=== PATIENT | female | born 1925 | race Caucasian/White ===

== ENCOUNTER 2016-08-25 02:20 | Inpatient (IN) | payer MEDICARE, BC ==
[2016-08-25] MEDS ORDERED: Acetaminophen TAB* 325 MG PO ONE (03:00)
[2016-08-25] MEDS ORDERED: Morphine INJ* 2 MG/ML 1 ML SYRINGE ONE (04:56)
[2016-08-25] MEDS ORDERED: Ondansetron INJ* 2 MG/ML VIAL ONE (04:56)
[2016-08-25] MEDS ORDERED: Ondansetron INJ* 2 MG/ML VIAL IV ONE (05:09)
[2016-08-25] MEDS ORDERED: Morphine INJ* 2 MG/ML 1 ML SYRINGE IV ONE (05:09)
--- NOTE | 2016-08-25 05:11 | HP ---
H&P (Free Text) History and Physical: PCP: Razia Chan MD Date/Time of Evaluation: 08/25/509 CC: fall w/ R hip pain HPI: Mrs Mccollum is an 89YO remarkably healthy female who got up to go to the restroom this night, lost her balance, and fell landing on her R side with immediate pain in the R hip. She called out to her daughter, Ally with whom she lives, who called EMS. She denies prodromal symptoms, specifically no chest pain, SOB, palpitations, light-headedness, dizziness, or other issue. She recalls falling and landing. There was no LOC. Work up reveals an angulated R femoral neck FX, but no other acute radiologic finding. Vitals are stable. Labs are remarkable for WBCs of 15k 83% neutrophils, otherwise reasonably normal. Of note, she has had bronchitis for ~1week which progressed to fever of 102F and for which her PCP started her on a Z-kaylen yesterday (Saturday). Her influenza & pneumococcal vaccines are reportedly up to date. Given this and her leukocytosis, surgery should be held while blood & urine CXs are processing and while her azithromycin is continued. Once she is afebrile for 48H on ABX, surgical management of her fracture may be considered. A rapid influenza is pending. PMedHx sinus tachycardia hiatal hernia GERD diverticulitis Allergies Aspirin Allergy (Verified 02/16/16 15:49) Hives/Diff.Breathing/Itching Niacin Allergy (Verified 02/16/16 15:49) See Comment liver issues Ambulatory Orders Docusate CAP* [Colace Cap*] 100 mg PO DAILY PRN 12/06/15 Ipratropium [place] (Nasal) [Ipratropium Volcano] 2 spray BOTH NARES TID LoraTADine TAB(NF) [Claritin TAB(NF)] 10 mg PO DAILY #0 12/06/15 Metoprolol Tartrate TAB* [Lopressor TAB*] 25 mg PO 1200,2000 tab 12/07/15 Misc Natural Products [Osteo Bi-Flex Advanced Do] 1 tab PO DAILY 02/16/16 Pantoprazole TAB (NF) [Protonix TAB (NF)] 20 mg PO DAILY #14 tab 02/16/16 Azithromycin TAB* [Zithromax TAB (Z-KAYLEN) 250 mg #6 tabs] 250 mg PO DAILY Calcium Carbonate-Vitamin D [Calcium 500 + D] 1 tab PO BID 08/25/16 Cranberry (Vaccinium Macrocarp [Cranberry] 400 mg PO DAILY 08/25/16 traMADol TAB* [Ultram*] 50 mg PO Q6HR PRN 08/25/16 PSurgHx OU cataract extraction nasal polyp extraction cholecystectomy SocHx: no tobacco, alcohol, or recreational drugs; 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; retired nurse; full code status FamHx: Father: "bad heart"; Brother: cancer of intestines ROS: as above, otherwise reviewed and all were negative Constitutional: NAD, normally developed, thin elderly white female vitals: Vital Signs Temp 37.0 C 08/25/16 02:37 Pulse 87 08/25/16 02:37 Resp 12 08/25/16 05:10 BP 126/43 08/25/16 02:37 Pulse Ox 93 08/25/16 02:37 Intake & Output 08/24/16 08/24/16 08/25/16 11:59 23:59 11:59 Weight 52.163 kg HEENM: atraumatic; sclera/conjunctiva: non-icteric/clear; hearing: clinically intact; oropharynx: clear, mucosa tacky Neck: soft tissue: non-tender; thyroid: normal Pulmonary: scant coarse crackle L base clears with deep inspiration otherwise clear, good aeration, no accessory muscle use CV: RR/RR, normal S1S2, no carotid bruit, no jugular venous distention, 1+ B DP/ PT, no edema, capillary refill RLE ~2sec Abdominal: soft, non-distended, non-tender, no rebound/guarding/rigidity, normoactive bowel sounds, no hepatosplenomegaly or masses, no costovertebral angle tenderness Musculoskeletal: general: RLE pain & spasm; gait: non-ambulatory 2nd R hip FX Integumental: R foot warm & pink Psychiatric orientation: AA&O to PPTS, sharp affect: alert, inquisitive mood: pleasant eye contact: good content: reliable memory: intact responses: timely insight: good Testing: Lab Results 08/25/16 08/25/16 Range/Units 05:12 05:12 WBC 15.6 H (3.5-10.8) 10^3/ul RBC 3.89 L (4.0-5.4) 10^6/ul Hgb 12.5 (12.0-16.0) g/dl Hct 36 (35-47) % MCV 94 (80-97) fL MCH 32 H (27-31) pg MCHC 34 (31-36) g/dl RDW 13 (10.5-15) % Plt Count 167 (150-450) 10^3/ul MPV 8 (7.4-10.4) um3 Neut % (Auto) 83.6 H (38-83) % Lymph % (Auto) 10.0 L (25-47) % [place] % (Auto) 6.0 (1-9) % Eos % (Auto) 0.1 (0-6) % Baso % (Auto) 0.3 (0-2) % Absolute Neuts (auto) 13.0 H (1.5-7.7) 10^3/ul Absolute Lymphs (auto) 1.5 (1.0-4.8) 10^3/ul Absolute Monos (auto) 0.9 H (0-0.8) 10^3/ul Absolute Eos (auto) 0 (0-0.6) 10^3/ul Absolute Basos (auto) 0 (0-0.2) 10^3/ul Absolute Nucleated RBC 0.01 10^3/ul Nucleated RBC % 0 Sodium 130 L (133-145) mmol/L Potassium 3.7 (3.5-5.0) mmol/L Chloride 97 L (101-111) mmol/L Carbon Dioxide 26 (22-32) mmol/L Anion Gap 7 (2-11) mmol/L BUN 17 (6-24) mg/dL Creatinine 0.71 (0.51-0.95) mg/dL Est GFR ( Amer) 99.7 (>60) Est GFR (Non-Af Amer) 77.5 (>60) BUN/Creatinine Ratio 23.9 H (8-20) Glucose 111 H (70-100) mg/dL Calcium 8.9 (8.6-10.3) mg/dL Total Bilirubin 0.60 (0.2-1.0) mg/dL AST 16 (13-39) U/L ALT 10 (7-52) U/L Alkaline Phosphatase 55 (34-104) U/L Total Protein 5.6 L (6.4-8.9) g/dL Albumin 3.2 (3.2-5.2) g/dL Globulin 2.4 (2-4) g/dL Albumin/Globulin Ratio 1.3 (1-3) ECG: ordered, pending CXR, personally reviewed: rotated L shoulder forward w/o infiltrate XRY R shoulder, personally reviewed: no obvious FX XRY R hip/pelvis, personally reviewed: angulated R femoral neck FX CT brain WO, personally reviewed: no obvious mass, hemorrhage, or infarct Impression: 89F presenting with a R hip FX s/p mechanical fall w/ concurrent bronchitis & recent fever DIAGNOSIS & PLAN Primary R hip FX s/p mechanical fall : pain control : Reggie Spence MD orthopedic surgery consulted, will follow : obtain CT RLE to define anatomy of FX : supportive care febrile bronchitis : continue PO azithromycin x4 days : check rapid influenza : check blood & urine CXs : recommend holding surgical management until afebrile and & blood CX negative for 48h Secondary sinus tachycardia : continue metoprolol GERD : continue pantoprazole Admission Rational: inpatient for surgical management of R hip FX and treatment/ monitoring of her febrile bronchitis as above DVTp: heparin SQ Code Status: full HCP: daughterAlly
[2016-08-25 05:25] LABS: Hematocrit 36 % (35-47); Hemoglobin 12.5 g/dl (12.0-16.0); Mean Corpuscular HGB Conc 34 g/dl (31-36); Mean Corpuscular Hemoglobin 32 pg (27-31); Mean Corpuscular Volume 94 fL (80-97); Mean Platelet Volume 8 um3 (7.4-10.4); Red Blood Count 3.89 10^6/ul (4.0-5.4); Red Cell Distribution Width 13 % (10.5-15); White Blood Count 15.6 10^3/ul (3.5-10.8)
[2016-08-25 05:40] LABS: Albumin 3.2 g/dL (3.2-5.2); BUN/Creatinine Ratio 23.9 (8-20); Calcium 8.9 mg/dL (8.6-10.3); EGFR African American 99.7 (>60); EGFR Non-African American 77.5 (>60); Globulin 2.4 g/dL (2-4); Potassium 3.7 mmol/L (3.5-5.0); Total Bilirubin 0.6 mg/dL (0.2-1.0); Total Protein 5.6 g/dL (6.4-8.9)
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
[2016-08-25] MEDS: Morphine INJ* 2 MG/ML 1 ML SYRINGE IV PRN ×3 (06:07→17:18)
[2016-08-25] MEDS ORDERED: Ondansetron INJ* 2 MG/ML VIAL IV PRN (06:12)
[2016-08-25] MEDS ORDERED: Melatonin (NF) 3 MG TAB PO PRN (06:12)
[2016-08-25] MEDS ORDERED: Acetaminophen TAB* 325 MG PO PRN (06:12)
[2016-08-25] MEDS: NS 0.9% 1000 ML* 1,000 ML IV SCH (08:01)
--- NOTE | 2016-08-25 10:11 | RAD ---
INDICATION: Right hip pain after a fall COMPARISON: None TECHNIQUE: 3 views of the right hip were obtained. FINDINGS: There is a comminuted fracture through the intertrochanteric line of the right hip with a small degree of varus deformity. Remaining visualized bones of the hip and pelvis are intact. Degenerative changes are noted at the bilateral hips. IMPRESSION: Minimally displaced right intertrochanteric fracture causing mild varus deformity.
--- NOTE | 2016-08-25 10:11 | RAD ---
INDICATION: Left shoulder pain after a fall COMPARISON: None. TECHNIQUE: 3 views of the left shoulder were obtained. FINDINGS: The adequately corticated bones are in normal alignment. Joint spaces appear maintained. No fracture, dislocation or focal bony abnormality is seen. IMPRESSION: Normal radiograph of the left shoulder. If the patient's symptoms persist, follow-up imaging is recommended.
--- NOTE | 2016-08-25 10:21 | RAD ---
INDICATION: Right hip fracture after a fall. COMPARISON: Chest x-ray dated February 16, 2016 TECHNIQUE: Single AP view of the chest was obtained. FINDINGS: Chronic findings include mild cardiomegaly, coarse calcification at the arch of the aorta and ectatic change of the thoracic aorta. The lungs are hyperaerated similar to the previous chest x-ray. There is diffuse reticulonodular densities. There is more confluent density along the medial aspect of the left lower lung that extends down to the diaphragm. IMPRESSION: 1. CHRONIC APPEARING FINDINGS INCLUDE CARDIOMEGALY AND DIFFUSE RETICULONODULAR DENSITIES WHICH COULD BE DUE TO CHRONIC CONGESTIVE HEART FAILURE OR INTERSTITIAL LUNG DISEASE. 2. A MORE CONFLUENT DENSITY AT THE MEDIAL ASPECT OF THE LEFT LOWER LOBE, NOT DEFINITELY SEEN ON THE PREVIOUS CHEST X-RAY, COULD REPRESENT CONSOLIDATION AND/OR ATELECTASIS.
[2016-08-25] MEDS: Cetirizine* 10 MG TAB PO SCH (10:28)
[2016-08-25] MEDS: Docusate CAP* 100 MG PO SCH ×2 (10:29→20:25)
[2016-08-25] MEDS: CMCS: Pantoprazole TAB (NF) 40 MG TAB PO SCH (10:29)
[2016-08-25] MEDS: Azithromycin TAB* 250 MG PO SCH (10:29)
[2016-08-25] MEDS: IPRATROPIUM BROMIDE BOTH NARES SCH ×3 (10:32→21:37)
--- NOTE | 2016-08-25 10:43 | RAD ---
CLINICAL HISTORY: Right hip pain after a fall COMPARISON: Same day radiograph that shows a minimally displaced right intertrochanteric fracture. TECHNIQUE: Multiple contiguous axial CT scans were obtained of the abdomen and pelvis, without intravenous contrast enhancement. Coronal and sagittal multiplanar reformations are submitted for review. FINDINGS: The visualized portions of the solid abdominal organs are grossly normal in appearance. The visualized loops of small and large bowel are not pathologically dilated. Rectosigmoid diverticula are incidentally noted. There is a Romero catheter in the urinary bladder. There is a pessary device in the pelvis. There is no gross retroperitoneal or mesenteric lymphadenopathy in the visualized portions of the abdomen. There is a comminuted intertrochanteric fracture including minimal displacement fracture line through the lesser and greater trochanter. Degenerative changes of the bilateral hips include joint space narrowing, sclerotic change of the articulating surfaces, subchondral lucencies and marginal osteophyte formation. Degenerative changes of the visualized lower lumbar spine include vacuum disc phenomenon and obliteration of the intervertebral disc space at L5/S1. IMPRESSION: 1. Comminuted right intertrochanteric fracture. 2. Chronic, degenerative and iatrogenic findings as described in the body of the report.
[2016-08-25 11:03] LABS: Urine Bacteria Absent (Absent); Urine Bilirubin Negative (Negative); Urine Glucose Negative (Negative); Urine Nitrite Negative (Negative)
[2016-08-25] MEDS: Metoprolol Tartrate TAB* 25 MG PO SCH ×2 (12:10→20:25)
--- NOTE | 2016-08-25 12:54 | RAD ---
INDICATION: Head pain after a fall COMPARISON: None. TECHNIQUE: Contiguous axial sections of the brain were obtained from the skull base to the vertex without contrast. FINDINGS: The ventricles, cisterns and sulci symmetrical age-appropriate involutional changes of the ventricles, sulci and cisterns. There is mild periventricular and subcortical white matter hypoattenuation, including a more focal area of hypoattenuation measuring 6 mm at the right subinsular cortex. Otherwise the stanford-white matter differentiation is adequately maintained and there is no sulcal effacement. No significant focal abnormality or mass effect is present. There is no evidence for intracranial hemorrhage. Calcified atherosclerosis is seen at the bilateral petrous carotid arteries and vertebral arteries. No significant focal osseous abnormality is present. There is mucosal thickening of the right greater than left maxillary sinuses, the sphenoid sinuses and the ethmoid air cells. The patient appears to be status post prior sinus surgery. IMPRESSION: Chronic appearing and postoperative changes as described above without acute traumatic injury identified.
[2016-08-25] MEDS: guaiFENesin LIQ* 100 MG/5 ML UDC PO PRN ×2 (14:30→20:26)
[2016-08-25] MEDS: Cyclobenzaprine TAB* 10 MG PO PRN ×2 (14:31→23:45)
[2016-08-25] MEDS: Heparin VIAL(*) 5000 UNITS/ML VIAL (FIVE THOUSAND) SUBCUT SCH ×2 (14:32→21:35)
[2016-08-25] MEDS: HYDROcodone/ACETAMIN 5-325 MG* 1 TAB PO PRN (20:35)
--- NOTE | 2016-08-25 21:09 | PN ---
Subjective Date of Service: 08/25/16 Interval History: Patient seen and examined at bedside. Denies fever, chills, shortness of breath , chest discomfort, N/V/D. Pt reports that pain is controlled. She reports recently having a viral illness. Family History: Unchanged from Admission Social History: Unchanged from Admission Past Medical History: Unchanged from Admission Objective Active Medications: Acetaminophen (Tylenol Tab*) 650 mg PO Q6H PRN Reason: FEVER/PAIN Hydrocodone Bitart/Acetaminophen ([place] 5-325 Tab*) 1 tab PO Q4H PRN Reason: PAIN Azithromycin (Zithromax Tab*) 250 mg PO DAILY [facility] Stop: 08/28/16 09:01 Cetirizine HCl (Zyrtec*) 10 mg PO DAILY [facility] Cyclobenzaprine HCl (Flexeril Tab*) 5 mg PO BID PRN Reason: SPASMS Docusate Sodium (Colace Cap*) 200 mg PO BID [facility] Guaifenesin (Robitussin*) 5 ml PO Q6H PRN Reason: COUGH Heparin Sodium (Porcine) (Heparin Vial(*)) 5,000 units SUBCUT Q8HR [facility] Sodium Chloride (Ns 0.9% 1000 Ml*) 1,000 mls @ 50 mls/hr IV PER RATE [facility] Melatonin (Melatonin (Nf)) 3 mg PO BEDTIME PRN; Protocol Reason: Sleep Metoprolol Tartrate (Lopressor Tab*) 25 mg PO 1200,2000 [facility] Morphine Sulfate (Morphine Inj (Syringe)*) 2 mg IV Q2H PRN Reason: PAIN - MILD Ipratropium [place] ((Nasal)) 2 spray BOTH NARES TID [facility] Ondansetron HCl (Zofran Inj*) 4 mg IV Q6H PRN Reason: NAUSEA Pantoprazole Sodium (Protonix Tab (Nf)) 20 mg PO DAILY [facility] Vital Signs 08/25/16 08/25/16 08/25/16 05:10 06:07 06:46 Temperature 98.5 F Pulse Rate 87 Respiratory 12 18 16 Rate Blood Pressure 122/61 (mmHg) O2 Sat by Pulse 91 Oximetry 08/25/16 08/25/16 08/25/16 06:50 07:07 11:40 Temperature 98.5 F 100.9 F Pulse Rate 87 94 Respiratory 16 20 16 Rate Blood Pressure 122/61 117/58 (mmHg) O2 Sat by Pulse 91 97 Oximetry 08/25/16 08/25/16 08/25/16 13:11 14:31 15:44 Temperature 99.5 F Pulse Rate 96 Respiratory 20 18 16 Rate Blood Pressure 124/59 (mmHg) O2 Sat by Pulse 95 Oximetry Oxygen Devices in Use Now: Nasal Cannula - 2L Appearance: NAD, laying in bed Eyes: No Scleral Icterus, PERRLA Respiratory: Symmetrical Chest Expansion and Respiratory Effort, Clear to Auscultation Cardiovascular: NL Sounds; No Murmurs; No JVD, RRR Abdominal: NL Sounds; No Tenderness; No Distention Extremities: No Edema Neurological: Alert and Oriented x 3, NL Muscle Strength and Tone Lines/Tubes/Other Access: Clean, Dry and Intact Peripheral IV - site benign Nutrition: Taking PO's Result Diagrams: 08/25/16 05:12 08/25/16 05:12 Microbiology and Other Data: Microbiology 08/25/16 18:35 Influenza Types A,B Antigen ([facility]ANTANA) - Final Nasal Specimen received for Influenza A/B Molecular testing 08/25/16 05:40 Nasal Screen MRSA (PCR)([facility]) - Final Nasal Mrsa Negative Assess/Plan/Problems-Billing Assessment: Ms. Mccollum is an 89 yo female with PMH significant for sinus tachycardia, GERD and diverticulitis who presented to the emergency room after falling at home., resulting in a right hip fracture. - Patient Problems (1) Hip fracture, right Code(s): S72.001A - FRACTURE OF UNSP PART OF NECK OF RIGHT FEMUR, INIT SNOMED Code(s): 654582779 Comment: - Continue pain control - Ortho consult, appreciate input - Plan for surgery on Saturday (2) Bronchitis Code(s): J40 - BRONCHITIS, NOT SPECIFIED ACUTE OR CHRONIC SNOMED Code(s): 74550242 Comment: - Febrile bronchitis - Leukocytosis - Afebrile, influenza negative, UA negative - Will check CBC in morning - Continue azithromycin (3) Sinus tachycardia Code(s): R00.0 - TACHYCARDIA, UNSPECIFIED SNOMED Code(s): 73654376 Comment: - HR controlled. - Continue home metoprolol. (4) GERD (gastroesophageal reflux disease) Code(s): K21.9 - GASTRO-ESOPHAGEAL REFLUX DISEASE WITHOUT ESOPHAGITIS SNOMED Code(s): 831496946 Comment: - Continue protonix (5) DVT prophylaxis Code(s): JOH4914 - SNOMED Code(s): 728173621 Comment: - Continue heparin SQ. Status and Disposition: Inpatient. Awaiting surgery, possibly on Saturday. Will likely need RENE vs NHP at discharge.
[2016-08-26] MEDS: Morphine INJ* 2 MG/ML 1 ML SYRINGE IV PRN ×3 (01:57→19:53)
[2016-08-26] MEDS: guaiFENesin LIQ* 100 MG/5 ML UDC PO PRN ×2 (02:51→18:13)
[2016-08-26] MEDS: NS 0.9% 1000 ML* 1,000 ML IV SCH (04:12)
[2016-08-26] MEDS: Heparin VIAL(*) 5000 UNITS/ML VIAL (FIVE THOUSAND) SUBCUT SCH ×2 (05:48→14:15)
[2016-08-26] MEDS: HYDROcodone/ACETAMIN 5-325 MG* 1 TAB PO PRN ×3 (05:50→18:12)
[2016-08-26] MEDS: IPRATROPIUM BROMIDE BOTH NARES SCH ×3 (08:17→21:30)
[2016-08-26] MEDS: Cyclobenzaprine TAB* 10 MG PO PRN ×2 (08:21→20:21)
[2016-08-26] MEDS: Docusate CAP* 100 MG PO SCH ×2 (08:21→20:20)
[2016-08-26] MEDS: CMCS: Pantoprazole TAB (NF) 40 MG TAB PO SCH (08:23)
[2016-08-26] MEDS: Azithromycin TAB* 250 MG PO SCH (08:23)
[2016-08-26] MEDS: Cetirizine* 10 MG TAB PO SCH (08:23)
[2016-08-26 08:29] LABS: Hematocrit 32 % (35-47); Mean Corpuscular HGB Conc 35 g/dl (31-36); Mean Corpuscular Hemoglobin 33 pg (27-31); Mean Corpuscular Volume 94 fL (80-97); Mean Platelet Volume 8 um3 (7.4-10.4); Red Blood Count 3.38 10^6/ul (4.0-5.4); Red Cell Distribution Width 13 % (10.5-15); White Blood Count 8.6 10^3/ul (3.5-10.8)
[2016-08-26 08:42] LABS: BUN/Creatinine Ratio 21.2 (8-20); Calcium 8.1 mg/dL (8.6-10.3); EGFR African American 108.4 (>60); EGFR Non-African American 84.3 (>60); Potassium 3.8 mmol/L (3.5-5.0)
--- NOTE | 2016-08-26 08:49 | PN ---
Subjective Date of Service: 08/26/16 Interval History: Patient seen and examined at bedside. Denies fever, chills, shortness of breath , chest discomfort, N/V/D. Pt reports continues non-productive cough. Pt is noted to have had a low grade fever yesterday around lunch time and last evening. Family History: Unchanged from Admission Social History: Unchanged from Admission Past Medical History: Unchanged from Admission Objective Active Medications: Acetaminophen (Tylenol Tab*) 650 mg PO Q6H PRN Reason: FEVER/PAIN Hydrocodone Bitart/Acetaminophen ([place] 5-325 Tab*) 1 tab PO Q4H PRN Reason: PAIN Azithromycin (Zithromax Tab*) 250 mg PO DAILY [facility] Stop: 08/28/16 09:01 Cetirizine HCl (Zyrtec*) 10 mg PO DAILY [facility] Cyclobenzaprine HCl (Flexeril Tab*) 5 mg PO BID PRN Reason: SPASMS Docusate Sodium (Colace Cap*) 200 mg PO BID [facility] Guaifenesin (Robitussin*) 5 ml PO Q6H PRN Reason: COUGH Heparin Sodium (Porcine) (Heparin Vial(*)) 5,000 units SUBCUT Q8HR [facility] Sodium Chloride (Ns 0.9% 1000 Ml*) 1,000 mls @ 50 mls/hr IV PER RATE [facility] Melatonin (Melatonin (Nf)) 3 mg PO BEDTIME PRN; Protocol Reason: Sleep Metoprolol Tartrate (Lopressor Tab*) 25 mg PO 1200,2000 [facility] Morphine Sulfate (Morphine Inj (Syringe)*) 2 mg IV Q2H PRN Reason: PAIN - MILD Ipratropium [place] ((Nasal)) 2 spray BOTH NARES TID [facility] Ondansetron HCl (Zofran Inj*) 4 mg IV Q6H PRN Reason: NAUSEA Pantoprazole Sodium (Protonix Tab (Nf)) 20 mg PO DAILY [facility] Vital Signs 08/25/16 08/25/16 08/25/16 11:40 12:11 12:54 Temperature 100.9 F Pulse Rate 94 Respiratory 16 20 18 Rate Blood Pressure 117/58 (mmHg) O2 Sat by Pulse 97 Oximetry 08/25/16 08/25/16 08/25/16 15:44 16:31 17:18 Temperature 99.5 F Pulse Rate 96 Respiratory 16 18 18 Rate Blood Pressure 124/59 (mmHg) O2 Sat by Pulse 95 Oximetry 08/25/16 08/25/16 08/25/16 20:45 22:35 23:35 Temperature 100.7 F 99.1 F Pulse Rate 90 88 Respiratory 16 16 16 Rate Blood Pressure 119/56 113/51 (mmHg) O2 Sat by Pulse 98 96 Oximetry 08/26/16 08/26/16 08/26/16 02:57 03:18 05:50 Temperature 98.5 F Pulse Rate 76 Respiratory 18 20 16 Rate Blood Pressure 110/48 (mmHg) O2 Sat by Pulse 98 Oximetry Oxygen Devices in Use Now: Nasal Cannula - 2L Appearance: NAD, laying in bed Eyes: No Scleral Icterus, PERRLA Ears/Nose/Mouth/Throat: NL Teeth, Lips, Gums, Mucous Membranes Moist Respiratory: Symmetrical Chest Expansion and Respiratory Effort, Clear to Auscultation Cardiovascular: NL Sounds; No Murmurs; No JVD, RRR Abdominal: NL Sounds; No Tenderness; No Distention Extremities: No Edema Skin: No Rash or Ulcers Neurological: Alert and Oriented x 3, NL Muscle Strength and Tone Lines/Tubes/Other Access: Clean, Dry and Intact Romero - patent, draining clear yellow urine, Clean, Dry and Intact Peripheral IV - site benign Nutrition: Taking PO's Result Diagrams: 08/26/16 08:11 08/26/16 08:11 Microbiology and Other Data: Microbiology 08/25/16 18:35 Influenza Types A,B Antigen ([facility]) - Final Nasal Specimen received for Influenza A/B Molecular testing 08/25/16 05:40 Nasal Screen MRSA (PCR)([facility]) - Final Nasal Mrsa Negative Assess/Plan/Problems-Billing Assessment: Ms. Mccollum is an 89 yo female with PMH significant for sinus tachycardia, GERD and diverticulitis who presented to the emergency room after falling at home., resulting in a right hip fracture. - Patient Problems (1) Hip fracture, right Code(s): S72.001A - FRACTURE OF UNSP PART OF NECK OF RIGHT FEMUR, INIT SNOMED Code(s): 915174155 Comment: - Continue pain control - Ortho consult, appreciate input - Plan for surgery on Saturday According to the RCRI she has 0 risk factors, which places her at a class I risk and a 0.4% chance of a cardiac event. METs score 4. EKG sinus rhythm, rate 83 and not signs of acute ischemia. She needs no further cardiac work up at this time. She is medically optimized for surgery and may proceed to surgery. (2) Bronchitis Code(s): J40 - BRONCHITIS, NOT SPECIFIED ACUTE OR CHRONIC SNOMED Code(s): 56136149 Comment: - Febrile bronchitis - Leukocytosis resolved - low grade fever overnight, influenza negative, UA negative - Continue azithromycin - Supportive care (3) Sinus tachycardia Code(s): R00.0 - TACHYCARDIA, UNSPECIFIED SNOMED Code(s): 06489073 Comment: - HR controlled. - Continue home metoprolol. (4) GERD (gastroesophageal reflux disease) Code(s): K21.9 - GASTRO-ESOPHAGEAL REFLUX DISEASE WITHOUT ESOPHAGITIS SNOMED Code(s): 061434847 Comment: - Continue protonix (5) DVT prophylaxis Code(s): PDL3126 - SNOMED Code(s): 191565657 Comment: - Continue heparin SQ. (6) DNR (do not resuscitate) Status and Disposition: Inpatient. Awaiting surgery, possibly on Saturday. Will likely need RENE vs NHP at discharge.
--- NOTE | 2016-08-26 09:39 | PN ---
Progress Note - Progress Note SOAP: Subjective: [Pt reports minimal pain at rest. Denies CP/SOB/nausea. Reports cough.] Objective: [A and oriented - some forgetfulness regarding upcoming surgery. Afebrile. NAD. Daughter at bedside. R hip TTP. Calves soft, NT. Gross motor and NV function intact Vital Signs: Temp Pulse Resp BP Pulse Ox 98.5 F 76 18 110/48 98 08/26/16 03:18 08/26/16 03:18 08/26/16 08:21 08/26/16 03:18 08/26/16 03:18 Laboratory Results - last 24 hr 08/25/16 08/25/16 08/25/16 05:12 10:50 18:45 WBC RBC Hgb Hct MCV MCH MCHC RDW Plt Count MPV Neut % (Auto) Lymph % (Auto) Allen % (Auto) Eos % (Auto) Baso % (Auto) Absolute Neuts (auto) Absolute Lymphs (auto) Absolute Monos (auto) Absolute Eos (auto) Absolute Basos (auto) Absolute Nucleated RBC Nucleated RBC % Sodium Potassium Chloride Carbon Dioxide Anion Gap BUN Creatinine Est GFR ( Amer) Est GFR (Non-Af Amer) BUN/Creatinine Ratio Glucose Calcium Procalcitonin 0.8 H Urine Color Yellow Urine Appearance Cloudy Urine pH 5.0 Ur Specific [place] 1.014 Urine Protein Negative Urine Ketones Negative Urine Blood 1+ H Urine Nitrate Negative Urine Bilirubin Negative Urine Urobilinogen Negative Ur Leukocyte Esterase 2+ H Urine WBC (Auto) Absent Urine RBC (Auto) Absent Urine Bacteria Absent Urine Glucose Negative Influenza A (Rapid) Negative Influenza B (Rapid) Negative 08/26/16 08/26/16 08:11 08:11 WBC 8.6 RBC 3.38 L Hgb 11.0 L Hct 32 L MCV 94 MCH 33 H MCHC 35 RDW 13 Plt Count 142 L MPV 8 Neut % (Auto) 69.3 Lymph % (Auto) 16.0 L Allen % (Auto) 11.8 H Eos % (Auto) 2.6 Baso % (Auto) 0.3 Absolute Neuts (auto) 6.0 Absolute Lymphs (auto) 1.4 Absolute Monos (auto) 1.0 H Absolute Eos (auto) 0.2 Absolute Basos (auto) 0 Absolute Nucleated RBC 0 Nucleated RBC % 0 Sodium 132 L Potassium 3.8 Chloride 100 L Carbon Dioxide 28 Anion Gap 4 BUN 14 Creatinine 0.66 Est GFR ( Amer) 108.4 Est GFR (Non-Af Amer) 84.3 BUN/Creatinine Ratio 21.2 H Glucose 114 H Calcium 8.1 L Procalcitonin Urine Color Urine Appearance Urine pH Ur Specific [place] Urine Protein Urine Ketones Urine Blood Urine Nitrate Urine Bilirubin Urine Urobilinogen Ur Leukocyte Esterase Urine WBC (Auto) Urine RBC (Auto) Urine Bacteria Urine Glucose Influenza A (Rapid) Influenza B (Rapid) ] Assessment: [s/p R hip fracture] Plan: [To OR with Dr. Spence tomorrow NPO after midnight Stop heparin after tonights dose Pain management]
[2016-08-26] MEDS: Metoprolol Tartrate TAB* 25 MG PO SCH ×2 (11:38→20:20)
[2016-08-26] MEDS ORDERED: Morphine INJ* 2 MG/ML 1 ML SYRINGE IV ONE (15:00)
[2016-08-26] MEDS ORDERED: Omeprazole CAP* 20 MG PO SCH (21:00)
[2016-08-26] MEDS ORDERED: Polyethylene Glycol 3350* 17 GM PACKET PO PRN (22:22)
[2016-08-26] MEDS ORDERED: Magnesium Hydroxide LIQ* 30 ML UDC PO PRN (22:22)
[2016-08-26] MEDS ORDERED: Magnesium Hydroxide LIQ* 30 ML UDC ONE (22:41)
[2016-08-26] MEDS ORDERED: NS 0.9% 1000 ML* 500 ML IV SCH (23:45)
[2016-08-27] MEDS: NS 0.9% 1000 ML* 1,000 ML IV SCH (02:05)
[2016-08-27] MEDS: Morphine INJ* 2 MG/ML 1 ML SYRINGE IV PRN ×3 (03:38→21:00)
[2016-08-27] MEDS: IPRATROPIUM BROMIDE BOTH NARES SCH ×3 (07:17→20:27)
[2016-08-27] MEDS ORDERED: Bisacodyl SUPP* 10 MG SUPP ONE (07:59)
[2016-08-27] MEDS: Docusate CAP* 100 MG PO SCH (08:01)
[2016-08-27] MEDS: HYDROcodone/ACETAMIN 5-325 MG* 1 TAB PO PRN ×3 (08:02→23:57)
[2016-08-27] MEDS: Cyclobenzaprine TAB* 10 MG PO PRN ×2 (08:02→21:04)
[2016-08-27] MEDS: Azithromycin TAB* 250 MG PO SCH (08:02)
[2016-08-27] MEDS: Cetirizine* 10 MG TAB PO SCH (08:03)
[2016-08-27] MEDS: CMCS: Pantoprazole TAB (NF) 40 MG TAB PO SCH ×2 (08:03→20:27)
--- NOTE | 2016-08-27 09:30 | PN ---
Progress Note - Progress Note SOAP: Subjective: []Patient seen at bedside. Daughter present. Pain managed as long as right leg not moved. Stomach bloating much improved. Awaiting surgery today with Dr. Spence. Objective: [] Vital Signs Temp 98.1 F 08/27/16 07:47 Pulse 101 08/27/16 07:47 Resp 18 08/27/16 09:10 BP 118/57 08/27/16 07:47 Pulse Ox 96 08/27/16 07:47 Intake & Output 08/26/16 08/27/16 08/27/16 18:59 06:59 18:59 Intake Total 440 1486 Output Total 250 275 0 Balance 190 1211 0 Weight 100 lb Intake: IV Fluids 1486 NS 1486 Oral 440 0 Output: Romero 250 275 0 Right LE shortened neuro intact w 2+ pedal pulse and active DF/PF right ankle calf non tender and soft, no edema Assessment: []Right hip IT fracture Plan: []NPO for surgical fixation with Dr. Spence this afternoon.
--- NOTE | 2016-08-27 11:00 | PN ---
Subjective Date of Service: 08/27/16 Interval History: . *11 yo female sitting up in bed A+O x3 visiting with her family. Reports pain in her hip with movement. Reports nasal congestion and cough for a week which appears to be improving. Denies fever or chills. No N/V/D. Family History: Unchanged from Admission Social History: Unchanged from Admission Past Medical History: Unchanged from Admission Objective Active Medications: Acetaminophen (Tylenol Tab*) 650 mg PO Q6H PRN PRN Reason: FEVER/PAIN Hydrocodone Bitart/Acetaminophen ([place] 5-325 Tab*) 1 tab PO Q4H PRN PRN Reason: PAIN Last Admin: 08/27/16 08:02 Dose: 1 tab Azithromycin (Zithromax Tab*) 250 mg PO DAILY [facility] Stop: 08/28/16 09:01 Last Admin: 08/27/16 08:02 Dose: 250 mg Cetirizine HCl (Zyrtec*) 10 mg PO DAILY [facility] Last Admin: 08/27/16 08:03 Dose: 10 mg Cyclobenzaprine HCl (Flexeril Tab*) 5 mg PO BID PRN PRN Reason: SPASMS Last Admin: 08/27/16 08:02 Dose: 5 mg Docusate Sodium (Colace Cap*) 200 mg PO BID [facility] Last Admin: 08/27/16 08:01 Dose: 200 mg Guaifenesin (Robitussin*) 5 ml PO Q6H PRN PRN Reason: COUGH Last Admin: 08/26/16 18:13 Dose: 5 ml Sodium Chloride (Ns 0.9% 1000 Ml*) 1,000 mls @ 50 mls/hr IV PER RATE [facility] Last Admin: 08/27/16 02:05 Dose: 50 mls/hr Cefazolin Sodium/Dextrose (Kefzol Premix(*)) 2 gm in 50 mls @ 100 mls/hr IVPB ONCE ONE Stop: 08/27/16 12:59 Sodium Chloride (Ns 0.9% 1000 Ml*) 500 mls @ 250 mls/hr IV PER RATE [facility] Last Admin: 08/26/16 23:51 Dose: 250 mls/hr Magnesium Hydroxide (Milk Of Magnesia Liq*) 30 ml PO Q6H PRN PRN Reason: CONSTIPATION Melatonin (Melatonin (Nf)) 3 mg PO BEDTIME PRN; Protocol PRN Reason: Sleep Metoprolol Tartrate (Lopressor Tab*) 25 mg PO 1199,1999 [facility] Last Admin: 08/26/16 20:20 Dose: 25 mg Morphine Sulfate (Morphine Inj (Syringe)*) 2 mg IV Q2H PRN PRN Reason: PAIN - MILD Last Admin: 08/27/16 08:10 Dose: 2 mg Ipratropium [place] ((Nasal)) 2 spray BOTH NARES TID [facility] Last Admin: 08/27/16 07:17 Dose: Not Given Ondansetron HCl (Zofran Inj*) 4 mg IV Q6H PRN PRN Reason: NAUSEA Pantoprazole Sodium (Protonix Tab (Nf)) 40 mg PO BID [facility] Last Admin: 08/27/16 08:03 Dose: 40 mg Polyethylene Glycol/Electrolytes (Miralax*) 17 gm PO DAILY PRN PRN Reason: CONSTIPATION Vital Signs 08/26/16 08/26/16 08/26/16 11:37 13:03 13:37 Temperature 98.4 F Pulse Rate 90 Respiratory 18 16 18 Rate Blood Pressure 127/60 (mmHg) O2 Sat by Pulse 99 Oximetry 08/26/16 08/26/16 08/26/16 14:13 14:58 15:13 Temperature Pulse Rate Respiratory 18 18 16 Rate Blood Pressure (mmHg) O2 Sat by Pulse Oximetry 08/26/16 08/26/16 08/26/16 15:30 15:58 18:12 Temperature 98.7 F Pulse Rate 84 Respiratory 20 16 18 Rate Blood Pressure 101/44 (mmHg) O2 Sat by Pulse 92 Oximetry 08/26/16 08/26/16 08/26/16 19:44 19:53 20:12 Temperature 99.2 F Pulse Rate 100 Respiratory 16 16 16 Rate Blood Pressure 122/66 (mmHg) O2 Sat by Pulse 98 Oximetry 08/26/16 08/26/16 08/26/16 20:20 20:21 20:53 Temperature Pulse Rate Respiratory 16 16 16 Rate Blood Pressure (mmHg) O2 Sat by Pulse Oximetry 08/26/16 08/26/16 08/27/16 22:17 22:21 03:32 Temperature 98.1 F 98.2 F Pulse Rate 106 97 Respiratory 16 16 16 Rate Blood Pressure 115/64 109/48 (mmHg) O2 Sat by Pulse 98 97 Oximetry 0308/27/16 08/27/16 03:38 04:38 07:47 Temperature 98.1 F Pulse Rate 101 Respiratory 20 16 17 Rate Blood Pressure 118/57 (mmHg) O2 Sat by Pulse 96 Oximetry 08/27/16 08/27/16 08/27/16 08:00 08:02 08:10 Temperature Pulse Rate Respiratory 18 18 18 Rate Blood Pressure (mmHg) O2 Sat by Pulse Oximetry 08/27/16 08/27/16 09:10 10:02 Temperature Pulse Rate Respiratory 18 18 Rate Blood Pressure (mmHg) O2 Sat by Pulse Oximetry Oxygen Devices in Use Now: Nasal Cannula - 2L Appearance: 89 yo female laying in bed in NAD A+O x3 Eyes: No Scleral Icterus, PERRLA Ears/Nose/Mouth/Throat: NL Teeth, Lips, Gums, Mucous Membranes Moist Neck: NL Appearance and Movements; NL JVP Respiratory: Symmetrical Chest Expansion and Respiratory Effort, Clear to Auscultation Cardiovascular: NL Sounds; No Murmurs; No JVD, RRR, No Edema Abdominal: NL Sounds; No Tenderness; No Distention Extremities: - - right hip pain with movement Skin: No Rash or Ulcers, No Nodules or Sclerosis Neurological: Alert and Oriented x 3, NL Sensation Lines/Tubes/Other Access: Clean, Dry and Intact Peripheral IV Nutrition: - - NPO Result Diagrams: 08/26/16 08:11 08/26/16 08:11 Microbiology and Other Data: Microbiology 08/25/16 18:35 Influenza Types A,B Antigen ([facility]ANTANA) - Final Nasal Specimen received for Influenza A/B Molecular testing 08/25/16 05:40 Nasal Screen MRSA (PCR)([facility]ANA) - Final Nasal Mrsa Negative Assess/Plan/Problems-Billing Assessment: Ms. Mccollum is an 89 yo female with PMH significant for sinus tachycardia, GERD and diverticulitis who presented to the emergency room after falling at home., resulting in a right hip fracture. - Patient Problems (1) Hip fracture, right Comment: - Dispo per Ortho - plan for OR today - Pain management, bowel regimen. - PT/OT (2) Bronchitis Comment: - Improving - afebrile for > 48 hours, Leukocytosis resolved; negative blood cx - influenza negative, UA negative - chest xray showing chronic CHF or interstitial diseas; and a more confluent density at the medical aspect of LLL which could represent consolidation and/or atelectasis. - Continue azithromycin course (3) Sinus tachycardia Comment: - Mildy tachycardiac, suspect pain. - Continue home metoprolol. (4) GERD (gastroesophageal reflux disease) Comment: - Asymptomatic. Continue protonix (5) DNR (do not resuscitate) (6) DVT prophylaxis Comment: - Continue heparin SQ. Status and Disposition: Inpatient. Plan for surgery today for fx hip Will likely need RENE vs NHP at discharge.
[2016-08-27] MEDS: Metoprolol Tartrate TAB* 25 MG PO SCH ×2 (11:06→19:47)
[2016-08-27] MEDS ORDERED: ceFAZolin 2 GM PREMIX(*) 2 GM/50 ML BAG IVPB ONE ×2 (11:14→12:30)
[2016-08-27] MEDS ORDERED: Buffered Lidocaine 1% SYRIN* 3 ML/SYR SYRINGE INTRADERM ONE (12:33)
[2016-08-27] MEDS ORDERED: Dexamethasone IV* 4 MG/ML 1 ML (4 MG) IV SLOW PU ONE (12:33)
[2016-08-27] MEDS ORDERED: Dexamethasone IV* 4 MG/ML 1 ML (4 MG) ONE (12:48)
[2016-08-27] MEDS ORDERED: Midazolam* 1 MG/ML 2 ML VIAL (2 MG) ONE (13:11)
[2016-08-27] MEDS ORDERED: fentaNYL* 50 MCG/ML 2 ML VIAL (100 MCG VIAL) ONE (13:11)
[2016-08-27] MEDS ORDERED: KETAMINE HCL* 50 MG/ML 10 ML VIAL ONE (13:11)
[2016-08-27] MEDS ORDERED: Bupivacaine 0.5% SDV PF* 30 ML VIAL ONE (13:13)
[2016-08-27] MEDS ORDERED: Bupivacaine 0.25% EPI 200,000* 30 ML SDV ONE (14:02)
[2016-08-27] MEDS ORDERED: DiMENhydriNATE IV* 50 MG/ML VIAL IV PUSH PRN (14:12)
[2016-08-27] MEDS ORDERED: HYDROmorphone* 1 MG/ML 1 ML SYR IV PRN (14:12)
[2016-08-27] MEDS ORDERED: fentaNYL* 50 MCG/ML 2 ML VIAL (100 MCG VIAL) IV PRN (14:12)
--- NOTE | 2016-08-27 15:37 | RAD ---
INDICATION: Fall, right hip fracture COMPARISONS: August 25, 2016 TECHNIQUE: Fluoroscopy was provided for a surgical procedure. Total fluoroscopy time is: 74.4 seconds FINDINGS: Spot images demonstrated internal fixation of the right femur IMPRESSION: FLUOROSCOPY WAS PROVIDED FOR A SURGICAL PROCEDURE CPT II Codes: 6045F
[2016-08-27] MEDS ORDERED: SIMETHICONE 125 MG PO PRN (16:23)
[2016-08-27] MEDS: LACTASE ENZYME 9000 UNIT PO SCH (16:54)
[2016-08-27] MEDS ORDERED: Docusate CAP* 100 MG PO PRN (17:57)
[2016-08-27] MEDS: guaiFENesin LIQ* 100 MG/5 ML UDC PO PRN (19:47)
[2016-08-27] MEDS: ceFAZolin 1 GM in Dextrose (*) 1 GM/50 ML BAG IVPB SCH (19:49)
[2016-08-27] MEDS: Calcium/Vitamin D TAB 250/125* TAB PO SCH (20:25)
[2016-08-28] MEDS: Morphine INJ* 2 MG/ML 1 ML SYRINGE IV PRN (02:58)
[2016-08-28] MEDS: HYDROcodone/ACETAMIN 5-325 MG* 1 TAB PO PRN ×5 (03:57→21:32)
[2016-08-28] MEDS: ceFAZolin 1 GM in Dextrose (*) 1 GM/50 ML BAG IVPB SCH ×2 (03:59→11:42)
[2016-08-28] MEDS: guaiFENesin LIQ* 100 MG/5 ML UDC PO PRN ×3 (04:02→16:55)
[2016-08-28] MEDS ORDERED: NS 0.9% 250 ML* 250 ML IV ONE (07:00)
[2016-08-28 07:20] LABS: Hematocrit 28 % (35-47); Hemoglobin 9.5 g/dl (12.0-16.0); Mean Corpuscular HGB Conc 34 g/dl (31-36); Mean Corpuscular Hemoglobin 32 pg (27-31); Mean Corpuscular Volume 94 fL (80-97); Mean Platelet Volume 8 um3 (7.4-10.4); Red Cell Distribution Width 13 % (10.5-15); White Blood Count 7.8 10^3/ul (3.5-10.8)
[2016-08-28 07:38] LABS: EGFR African American 164.5 (>60); EGFR Non-African American 127.9 (>60); Potassium 4.1 mmol/L (3.5-5.0)
[2016-08-28] MEDS: Cetirizine* 10 MG TAB PO SCH (07:39)
[2016-08-28] MEDS: CMCS: Pantoprazole TAB (NF) 40 MG TAB PO SCH ×2 (07:40→20:27)
[2016-08-28] MEDS: LACTASE ENZYME 9000 UNIT PO SCH ×3 (07:41→16:56)
[2016-08-28] MEDS: Calcium/Vitamin D TAB 250/125* TAB PO SCH ×3 (07:41→20:27)
[2016-08-28] MEDS: [UNRECOGNIZED DRUG - OTHER] PO SCH (07:43)
[2016-08-28] MEDS: IPRATROPIUM BROMIDE BOTH NARES SCH ×3 (08:25→20:28)
--- NOTE | 2016-08-28 08:49 | OP ---
OPERATIVE REPORT: DATE OF OPERATION: 08/27/16 DATE OF : [birth year] SURGEON: Chandra Spence MD ENVIRONMENTAL HEALTH TECHNOLOGIST: MALIK Leiva ANESTHESIA: Spinal and sedation. PRE-OP DIAGNOSIS: Right hip intertrochanteric/basicervical hip fracture. POST-OP DIAGNOSIS: Right hip intertrochanteric/basicervical hip fracture. OPERATIVE PROCEDURE: Open reduction/internal fixation, right hip fracture with intramedullary nail. ESTIMATED BLOOD LOSS: Less than 25 cc. COMPLICATIONS: None. SUMMARY: Mrs. Mccollum is an 89-year-old female who overnight Saturday to Saturday had gotten up to go to the bathroom and lost her balance and landed hard on the right hip. She was unable to get up and h ad called out to her daughter, who had brought her into the hospital and x-rays were taken, which babin d found a right hip fracture. She unfortunately had been ill with bronchitis for the week before and had started to spike the temperature to 102 on Saturday and was started on Z-Poncho prior to her fall. Therefore, when she was admitted by the hospitalist, they wanted her afebrile for 48 hours on antibi otics. She did well over the weekend and was added on to the schedule today. I discussed with Mrs. Mccollum and her family that an ORIF should work well, so we can hold the bone in place while it heals. Risks of surgery such as infection, scar formation, stiffness, DVT, pulmonary embolism, nonunion, leg length discrepancy, and troubles walking were some of the risks discussed. They all had wished to proceed. DESCRIPTION OF PROCEDURE: The patient was brought to the OR and spinal anesthesia was established. She was then transferred to the fracture table and care was taken to make sure that the left leg wa s nicely padded and that the right leg was placed into traction. Traction was adjusted until her x- rays appeared essentially perfect. Right hip area was prepped and then draped. Skin over the incis ional area was infiltrated using 0.25% Marcaine with epinephrine and an incision was made directly o vadim the tip of the greater trochanter extending a bit proximally. She was quite lean and this would give nice access right to the top of the greater troch. Fascia underneath was sharply split and wi th finger palpation, I could feel the tip of the greater trochanter. Awl was placed and adjusted in AP and lateral planes until it appeared I had a straight shot down the canal. Awl was pushed inwar ds a little bit further and ball-tipped guidewire was pushed down towards the knee. Reamer was run over this and the femur was progressively reamed. Beginning with a 9, she was reamed all the way up to an 11 in order to be over the width of the missy. C-arm was then brought down to make sure that t he ball tip was just above the knee joint and it was and coming back up. The portion of the guidewi re taking out was measured and it appeared a 36 would fit nicely. A 36-mm missy was then maneuvered i nto place. Hammering was not even necessary. Locking screw guide was adjusted and again skin was i nfiltrated with Marcaine and skin was incised. Guide was then fully seated and guidewire was then r un. Guidewire was seated very nicely and checked again in AP and lateral planes. Positioning appea red good and an 85 mm screw was called for. Screw had a wonderful bite and was nicely seated. Lock ing screw was placed and outrigger was all removed. Attention was turned distally and the distal lo cking hole was localized and an incision made. Drill was placed and adjusted until appeared I had a nice run right through the distal locking hole and drill was run through the medial cortex. The ho le was measured and a 40 seemed to fit quite nicely. 40 was seated, but I could not find the medial cortex. Considering I had a good bite with the positioning, I thought this will be alright and maggie l C-arm pictures were saved. Wounds were irrigated using the bulb syringe and then closed using 2-0 Vicryl sutures. Brenda and a sterile dressing was applied. The patient was then awake and stable on transfer to the recovery room. [id number]/[facility] #: [id number]
--- NOTE | 2016-08-28 09:35 | PN ---
Progress Note - Progress Note SOAP: Subjective: []Patient seen OOB in chair. PT reports she did very well transferring OOB to chair this morning. Pain well managed. Denies SOB, chest pain or dizziness. Daughter present. Objective: [] Vital Signs Temp 98.5 F 08/28/16 07:28 Pulse 80 08/28/16 07:28 Resp 16 08/28/16 08:22 BP 119/57 08/28/16 07:28 Pulse Ox 99 08/28/16 07:28 Intake & Output 08/27/16 08/28/16 08/28/16 18:59 06:59 18:59 Intake Total 1425 560 251 Output Total 200 450 Balance 1225 110 251 Intake: IV Fluids 1200 251 LR 1200 NS 251 Oral 225 560 Output: Romero 200 450 Other: Estimated Stool Amount Small Laboratory Results - last 24 hr 08/28/16 08/28/16 06:47 06:47 WBC 7.8 RBC 3.00 L Hgb 9.5 L Hct 28 L MCV 94 MCH 32 H MCHC 34 RDW 13 Plt Count 182 MPV 8 Neut % (Auto) 75.5 Lymph % (Auto) 11.9 L [place] % (Auto) 12.4 H Eos % (Auto) 0.1 Baso % (Auto) 0.1 Absolute Neuts (auto) 5.9 Absolute Lymphs (auto) 0.9 L Absolute Monos (auto) 1.0 H Absolute Eos (auto) 0 Absolute Basos (auto) 0 Absolute Nucleated RBC 0 Nucleated RBC % 0 Sodium 134 Potassium 4.1 Chloride 102 Carbon Dioxide 27 Anion Gap 5 BUN 17 Creatinine 0.46 L Est GFR ( Amer) 164.5 Est GFR (Non-Af Amer) 127.9 BUN/Creatinine Ratio 37.0 H Glucose 118 H Calcium 8.0 L Right hip dressing is dry and intact minimal thigh edema no calf swelling or tenderness active DF/PF right ankle neuro intact Assessment: []s/p ORIF right intertrochanteric hip fracture with Gamma nail POD #1 Plan: []PT/OT WBAT right LE Heparin for DVT prophylaxis PMRU vs SNF rehab
[2016-08-28] MEDS ORDERED: Benzocaine/Menthol LOZ* 1 LOZENGE PO PRN (11:00)
[2016-08-28] MEDS: Metoprolol Tartrate TAB* 25 MG PO SCH ×2 (11:42→20:28)
--- NOTE | 2016-08-28 13:25 | PN ---
Subjective Date of Service: 08/28/16 Interval History: . Pt reports "I feel great". Vidal shave some pain that she reports as "tolerable" in her hip with movement and ambulation. No CP or SOB. Feels that her cough is improving from her recently dx bronchitis, reports some sputum production Family History: Unchanged from Admission Social History: Unchanged from Admission Past Medical History: Unchanged from Admission Objective Active Medications: Acetaminophen (Tylenol Tab*) 650 mg PO Q6H PRN PRN Reason: FEVER/PAIN Hydrocodone Bitart/Acetaminophen ([place] 5-325 Tab*) 1 tab PO Q4H PRN PRN Reason: PAIN Last Admin: 08/28/16 13:10 Dose: 1 tab Calcium/Vitamin D (Oscal D Tab 250/125*) 2 tab PO BID [facility] Last Admin: 08/28/16 11:41 Dose: 2 tab Cetirizine HCl (Zyrtec*) 10 mg PO DAILY [facility] Last Admin: 08/28/16 07:39 Dose: 10 mg Cyclobenzaprine HCl (Flexeril Tab*) 5 mg PO BID PRN PRN Reason: SPASMS Last Admin: 08/27/16 21:04 Dose: 5 mg Docusate Sodium (Colace Cap*) 100 mg PO DAILY PRN PRN Reason: CONSTIPATION Guaifenesin (Robitussin*) 5 ml PO Q6H PRN PRN Reason: COUGH Last Admin: 08/28/16 10:44 Dose: 5 ml Heparin Sodium (Porcine) (Heparin Vial(*)) 5,000 units SUBCUT Q12HR [facility] Lactase (Lactaid Fast Act) 9,000 unit PO AC [facility] Last Admin: 08/28/16 11:42 Dose: 9,000 unit Magnesium Hydroxide (Milk Of Magnesia Liq*) 30 ml PO Q6H PRN PRN Reason: CONSTIPATION Melatonin (Melatonin (Nf)) 3 mg PO BEDTIME PRN; Protocol PRN Reason: Sleep Metoprolol Tartrate (Lopressor Tab*) 25 mg PO 1200,2000 [facility] Last Admin: 08/28/16 11:42 Dose: 25 mg Morphine Sulfate (Morphine Inj (Syringe)*) 2 mg IV Q2H PRN PRN Reason: PAIN - MILD Last Admin: 08/28/16 02:58 Dose: 2 mg Pto Ipratropium (Lee (Nasal)) 2 spray BOTH NARES TID [facility] Last Admin: 08/28/16 13:11 Dose: 2 spray Pto Nf Med* Simethicone 125mg Tabs 1 admin PO Q6H PRN PRN Reason: Flatulence Non Formulary Med* Cranberry Macrocarp 400mg 1 admin PO DAILY [facility] Last Admin: 08/28/16 07:43 Dose: Not Given Ondansetron HCl (Zofran Inj*) 4 mg IV Q6H PRN PRN Reason: NAUSEA Pantoprazole Sodium (Protonix Tab (Nf)) 40 mg PO BID [facility] Last Admin: 08/28/16 07:40 Dose: 40 mg Polyethylene Glycol/Electrolytes (Miralax*) 17 gm PO DAILY PRN PRN Reason: CONSTIPATION Throat Lozenges (Chloraseptic Edyta*) 1 edyta PO Q6H PRN PRN Reason: SORE THROAT Vital Signs 08/28/16 08/28/16 08/28/16 07:17 07:28 08:22 Temperature 98.5 F Pulse Rate 80 Respiratory 16 17 16 Rate Blood Pressure 119/57 (mmHg) O2 Sat by Pulse 100 99 Oximetry 08/28/16 08/28/16 08/28/16 10:22 11:20 11:27 Temperature 98.6 F Pulse Rate 92 91 Respiratory 16 17 Rate Blood Pressure 104/55 110/50 (mmHg) O2 Sat by Pulse 95 Oximetry 08/28/16 13:10 Temperature Pulse Rate Respiratory 16 Rate Blood Pressure (mmHg) O2 Sat by Pulse Oximetry Oxygen Devices in Use Now: Nasal Cannula - 2L Appearance: 89 yo female sitting up in a chair visiting with son in NAD A+O x3 Eyes: No Scleral Icterus, PERRLA Ears/Nose/Mouth/Throat: Mucous Membranes Moist Neck: NL Appearance and Movements; NL JVP Respiratory: Symmetrical Chest Expansion and Respiratory Effort, Clear to Auscultation Cardiovascular: NL Sounds; No Murmurs; No JVD, RRR, No Edema Abdominal: NL Sounds; No Tenderness; No Distention Extremities: No Edema, No Clubbing, Cyanosis Skin: No Rash or Ulcers, No Nodules or Sclerosis Neurological: Alert and Oriented x 3, NL Sensation Lines/Tubes/Other Access: Clean, Dry and Intact Peripheral IV Nutrition: Taking PO's Result Diagrams: 08/28/16 06:47 08/28/16 06:47 Microbiology and Other Data: Microbiology 08/25/16 18:35 Influenza Types A,B Antigen ([facility]) - Final Nasal Specimen received for Influenza A/B Molecular testing 08/25/16 05:40 Nasal Screen MRSA (PCR)([facility]) - Final Nasal Mrsa Negative Assess/Plan/Problems-Billing Assessment: Ms. Mccollum is an 89 yo female with PMH significant for sinus tachycardia, GERD and diverticulitis who presented to the emergency room after falling at home., resulting in a right hip fracture. - Patient Problems (1) Hip fracture, right Comment: - Dispo per Ortho - POD #1 - Pain management, bowel regimen. - PT/OT - Plan for PMRU (2) Bronchitis Comment: - Improving - afebrile, Leukocytosis resolved; negative blood cx - influenza negative, UA negative - chest xray showing chronic CHF or interstitial disease; and a more confluent density at the medical aspect of LLL which could represent consolidation and/or atelectasis. - Finished azithromycin course (3) Sinus tachycardia Comment: - Resolved - Continue home metoprolol. (4) GERD (gastroesophageal reflux disease) Comment: - Asymptomatic. Continue protonix (5) DNR (do not resuscitate) (6) DVT prophylaxis Comment: - Continue heparin SQ. Status and Disposition: Inpatient. fx hip. Plan for PMRU, possibly tomorrow if medical stable and ok with ortho
[2016-08-28] MEDS ORDERED: NS 0.9% 1000 ML* 1,000 ML IV SCH (15:30)
[2016-08-28] MEDS: Albuterol/Ipratropium NEB.SOL* Albuterol 2.5 MG/Ipratropium 0.5 MG 3 ML INH PRN ×2 (17:15→23:18)
[2016-08-28] MEDS: Heparin VIAL(*) 5000 UNITS/ML VIAL (FIVE THOUSAND) SUBCUT SCH (20:28)
[2016-08-29] MEDS ORDERED: NS 0.9% 500 ML BAG* 500 ML IV ONE (00:30)
[2016-08-29] MEDS: Morphine INJ* 2 MG/ML 1 ML SYRINGE IV PRN ×2 (00:52→13:54)
[2016-08-29] MEDS: HYDROcodone/ACETAMIN 5-325 MG* 1 TAB PO PRN ×4 (01:22→17:14)
[2016-08-29] MEDS: guaiFENesin LIQ* 100 MG/5 ML UDC PO PRN (04:25)
[2016-08-29 05:52] LABS: Hematocrit 30 % (35-47)
[2016-08-29] MEDS: [UNRECOGNIZED DRUG - OTHER] PO SCH (07:19)
[2016-08-29] MEDS: Calcium/Vitamin D TAB 250/125* TAB PO SCH ×2 (08:21→21:23)
[2016-08-29] MEDS: LACTASE ENZYME 9000 UNIT PO SCH ×3 (08:21→17:15)
[2016-08-29] MEDS: Cetirizine* 10 MG TAB PO SCH (08:21)
[2016-08-29] MEDS: CMCS: Pantoprazole TAB (NF) 40 MG TAB PO SCH ×2 (08:21→19:50)
[2016-08-29] MEDS: Heparin VIAL(*) 5000 UNITS/ML VIAL (FIVE THOUSAND) SUBCUT SCH ×2 (08:22→21:23)
[2016-08-29] MEDS: IPRATROPIUM BROMIDE BOTH NARES SCH ×3 (08:22→21:28)
[2016-08-29] MEDS: Cyclobenzaprine TAB* 10 MG PO PRN ×2 (08:25→21:26)
[2016-08-29] MEDS ORDERED: Metoprolol Tartrate TAB* 25 MG PO ONE (09:01)
--- NOTE | 2016-08-29 10:53 | PN ---
Progress Note - Progress Note SOAP: Subjective: []Lucy seen bedside. Complaining of palpitations at times. Says a betablocker was given this am for the symptoms. Pain in right hip is well controlled. Objective: [] Vital Signs Temp 97.8 F 08/29/16 07:29 Pulse 140 08/29/16 07:29 Resp 18 08/29/16 10:25 BP 119/65 08/29/16 07:29 Pulse Ox 95 08/29/16 08:00 Intake & Output 08/28/16 08/29/16 08/29/16 18:59 06:59 18:59 Intake Total 956 2041 0 Output Total 961 927 2345 Balance 756 1571 -1075 Intake: IV Fluids 251 996 NS 251 996 IVPB 495 NS bolus 495 Oral 705 550 0 Output: Urine 75 470 1075 Romero 125 Other: Estimated Void Medium # Voids 1 Laboratory Results - last 24 hr 08/29/16 05:26 Hgb 10.0 L Hct 30 L Right hip dressings were changed. no bloody drainage All 3 incisions are benign, no bruising, juan intact calf non tender and soft +DF/PF right ankle Assessment: []s/p Right hip gamma nail POD #2 PT/OT WBAT RLE Heparin Stable from orthopedic standpoint for SNF rehab Plan: []
[2016-08-29] MEDS: Metoprolol Tartrate TAB* 25 MG PO SCH ×2 (12:12→21:24)
--- NOTE | 2016-08-29 13:55 | PN ---
Subjective Date of Service: 08/29/16 Interval History: Patient seen and evaluated at the bedside. She reports some hip pain. Denies CP , SOB - reports palpitations starting in the night - hx of tachycardia in which she take BB for, no hx of afib per patient. She denies fever or chills. Reports good appetite. Family History: Unchanged from Admission Social History: Unchanged from Admission Past Medical History: Unchanged from Admission Objective Active Medications: Acetaminophen (Tylenol Tab*) 650 mg PO Q6H PRN PRN Reason: FEVER/PAIN Hydrocodone Bitart/Acetaminophen ([place] 5-325 Tab*) 1 tab PO Q4H PRN PRN Reason: PAIN Last Admin: 08/29/16 10:45 Dose: 1 tab Albuterol/Ipratropium (Duoneb (Albuterol 2.5 Mg/Ipratropium 0.5 Mg)) 1 neb INH [id number] AWAKE PRN PRN Reason: COUGH Last Admin: 08/28/16 23:18 Dose: 1 neb Benzonatate (Tessalon Cap*) 100 mg PO Q12HR [facility] Calcium/Vitamin D (Oscal D Tab 250/125*) 2 tab PO BID [facility] Last Admin: 08/29/16 08:21 Dose: 2 tab Cetirizine HCl (Zyrtec*) 10 mg PO DAILY [facility] Last Admin: 08/29/16 08:21 Dose: 10 mg Cyclobenzaprine HCl (Flexeril Tab*) 5 mg PO BID PRN PRN Reason: SPASMS Last Admin: 08/29/16 08:25 Dose: 5 mg Docusate Sodium (Colace Cap*) 100 mg PO DAILY PRN PRN Reason: CONSTIPATION Guaifenesin (Robitussin*) 5 ml PO Q6H PRN PRN Reason: COUGH Last Admin: 08/29/16 04:25 Dose: 5 ml Heparin Sodium (Porcine) (Heparin Vial(*)) 5,000 units SUBCUT Q12HR [facility] Last Admin: 08/29/16 08:22 Dose: 5,000 units Lactase (Lactaid Fast Act) 9,000 unit PO AC [facility] Last Admin: 08/29/16 12:12 Dose: 9,000 unit Magnesium Hydroxide (Milk Of Magnesia Liq*) 30 ml PO Q6H PRN PRN Reason: CONSTIPATION Melatonin (Melatonin (Nf)) 3 mg PO BEDTIME PRN; Protocol PRN Reason: Sleep Metoprolol Tartrate (Lopressor Tab*) 25 mg PO 1199,1999 [facility] Last Admin: 08/29/16 12:12 Dose: 25 mg Morphine Sulfate (Morphine Inj (Syringe)*) 2 mg IV Q2H PRN PRN Reason: PAIN - MILD Last Admin: 08/29/16 00:52 Dose: 2 mg Pto Ipratropium ([place] (Nasal)) 2 spray BOTH NARES TID [facility] Last Admin: 08/29/16 08:22 Dose: 2 spray Pto Nf Med* Simethicone 125mg Tabs 1 admin PO Q6H PRN PRN Reason: Flatulence Non Formulary Med* Cranberry Macrocarp 400mg 1 admin PO DAILY [facility] Last Admin: 08/29/16 07:19 Dose: Not Given Ondansetron HCl (Zofran Inj*) 4 mg IV Q6H PRN PRN Reason: NAUSEA Pantoprazole Sodium (Protonix Tab (Nf)) 40 mg PO BID [facility] Last Admin: 08/29/16 08:21 Dose: 40 mg Polyethylene Glycol/Electrolytes (Miralax*) 17 gm PO DAILY PRN PRN Reason: CONSTIPATION Throat Lozenges (Chloraseptic Edyta*) 1 edyta PO Q6H PRN PRN Reason: SORE THROAT Vital Signs 08/29/16 08/29/16 08/29/16 07:29 07:39 08:00 Temperature 97.8 F Pulse Rate 140 Respiratory 18 18 18 Rate Blood Pressure 119/65 (mmHg) O2 Sat by Pulse 95 95 Oximetry 08/29/16 08/29/16 08/29/16 08:25 10:25 10:45 Temperature Pulse Rate Respiratory 18 18 18 Rate Blood Pressure (mmHg) O2 Sat by Pulse Oximetry 08/29/16 08/29/16 08/29/16 11:37 11:55 12:45 Temperature 97.5 F Pulse Rate 148 Respiratory 18 16 Rate Blood Pressure 107/64 (mmHg) O2 Sat by Pulse 92 95 Oximetry Oxygen Devices in Use Now: Nasal Cannula - 2L Appearance: 89 yo female A+o x3 in NAD. Eyes: No Scleral Icterus, PERRLA Ears/Nose/Mouth/Throat: NL Teeth, Lips, Gums, Mucous Membranes Moist Neck: NL Appearance and Movements; NL JVP Respiratory: Symmetrical Chest Expansion and Respiratory Effort, Clear to Auscultation Cardiovascular: NL Sounds; No Murmurs; No JVD, No Edema, - - RRR, tachycardic Abdominal: NL Sounds; No Tenderness; No Distention Extremities: No Edema, No Clubbing, Cyanosis Skin: No Rash or Ulcers, No Nodules or Sclerosis Neurological: Alert and Oriented x 3, NL Sensation, NL Gait, NL Muscle Strength and Tone Lines/Tubes/Other Access: Clean, Dry and Intact Peripheral IV Nutrition: Taking PO's Result Diagrams: 08/29/16 05:26 08/28/16 06:47 Microbiology and Other Data: Microbiology 08/25/16 18:35 Influenza Types A,B Antigen (SANTANA) - Final Nasal Specimen received for Influenza A/B Molecular testing 08/25/16 05:40 Nasal Screen MRSA (PCR)(SANTANA) - Final Nasal Mrsa Negative Assess/Plan/Problems-Billing Assessment: Ms. Mccollum is an 89 yo female with PMH significant for sinus tachycardia, GERD and diverticulitis who presented to the emergency room after falling at home., resulting in a right hip fracture. - Patient Problems (1) Hip fracture, right Comment: - Dispo per Ortho - POD #1 - Pain management, bowel regimen. - PT/OT - Plan for PMRU (2) Bronchitis Comment: - Improving - afebrile, Leukocytosis resolved; negative blood cx - influenza negative, UA negative - chest xray showing chronic CHF or interstitial disease; and a more confluent density at the medical aspect of LLL which could represent consolidation and/or atelectasis. - Finished azithromycin course (3) Sinus tachycardia Comment: - Tachycardia started overnight - suspect secondary to hypervolemia. EKG showing sinus tachycardia no acute ischemic chnages. No CP. Troponin negative. Was given extra dose of metoprolol w/o any effect. Suspect this is secondary to receiving NS overnight. BNP elevated from admission up 400. Plan to give 20 mg IV lasix. - Continue home metoprolol. - monitor I+O's (4) GERD (gastroesophageal reflux disease) Comment: - Asymptomatic. Continue protonix (5) DNR (do not resuscitate) (6) DVT prophylaxis Comment: - Continue heparin SQ. Status and Disposition: Inpatient. fx hip. Plan for PMRU, possibly tomorrow if medical stable. Plan discussed with patient and daughter
[2016-08-29] MEDS ORDERED: Furosemide IV* 10 MG/ML 10 ML VIAL (100 MG) IV ONE (13:57)
[2016-08-29] MEDS ORDERED: Furosemide IV* 10 MG/ML 2 ML VIAL (20 MG) IV ONE (13:57)
[2016-08-29] MEDS: Benzonatate CAP* 100 MG PO SCH ×2 (14:08→21:27)
[2016-08-29 14:17] LABS: Troponin I 0.03 ng/mL (<0.04)
[2016-08-30] MEDS: guaiFENesin LIQ* 100 MG/5 ML UDC PO PRN (02:18)
[2016-08-30] MEDS: HYDROcodone/ACETAMIN 5-325 MG* 1 TAB PO PRN ×2 (02:18→09:01)
[2016-08-30 07:17] LABS: Hematocrit 28 % (35-47); Hemoglobin 9.4 g/dl (12.0-16.0); Mean Corpuscular HGB Conc 34 g/dl (31-36); Mean Corpuscular Hemoglobin 32 pg (27-31); Mean Corpuscular Volume 93 fL (80-97); Mean Platelet Volume 7 um3 (7.4-10.4); Red Blood Count 2.94 10^6/ul (4.0-5.4); Red Cell Distribution Width 13 % (10.5-15); White Blood Count 6.4 10^3/ul (3.5-10.8)
[2016-08-30 07:32] LABS: BUN/Creatinine Ratio 33.9 (8-20); Calcium 8.4 mg/dL (8.6-10.3); EGFR African American 116.6 (>60); EGFR Non-African American 90.6 (>60); Potassium 3.9 mmol/L (3.5-5.0)
[2016-08-30] MEDS: CMCS: Pantoprazole TAB (NF) 40 MG TAB PO SCH (07:48)
[2016-08-30 07:50] VITALS: BP 120/58
[2016-08-30] MEDS: LACTASE ENZYME 9000 UNIT PO SCH (08:59)
[2016-08-30] MEDS: Benzonatate CAP* 100 MG PO SCH (09:00)
[2016-08-30] MEDS: Cetirizine* 10 MG TAB PO SCH (09:00)
[2016-08-30] MEDS: Calcium/Vitamin D TAB 250/125* TAB PO SCH (09:00)
[2016-08-30] MEDS: Heparin VIAL(*) 5000 UNITS/ML VIAL (FIVE THOUSAND) SUBCUT SCH (09:01)
[2016-08-30] MEDS: IPRATROPIUM BROMIDE BOTH NARES SCH (09:04)
[2016-08-30] MEDS: [UNRECOGNIZED DRUG - OTHER] PO SCH (09:16)
--- NOTE | 2016-08-30 09:22 | PN ---
Progress Note - Progress Note SOAP: Subjective: []Patient seen OOb in chair. Still coughing but overall feels much better today. Ready to go to rehab later today. Objective: [] Vital Signs Temp 98.5 F 08/30/16 07:48 Pulse 104 08/30/16 07:48 Resp 16 08/30/16 09:01 BP 120/58 08/30/16 07:48 Pulse Ox 90 08/30/16 07:48 Intake & Output 08/29/16 08/30/16 08/30/16 18:59 06:59 18:59 Intake Total 515 340 Output Total 1075 400 Balance -560 -60 Intake: Oral 515 340 Output: Urine 1075 400 Nephrostomy #1 0 Other: Estimated Void Small Date of Last Bowel 08/30/16 Movement # Bowel Movements 1 Estimated Stool Amount Small Small # Voids 1 Laboratory Results - last 24 hr 08/29/16 08/29/16 08/30/16 13:45 13:45 06:42 WBC 6.4 RBC 2.94 L Hgb 9.4 L Hct 28 L MCV 93 MCH 32 H MCHC 34 RDW 13 Plt Count 226 MPV 7 L Neut % (Auto) 68.8 Lymph % (Auto) 16.9 L Dale % (Auto) 11.7 H Eos % (Auto) 2.4 Baso % (Auto) 0.2 Absolute Neuts (auto) 4.4 Absolute Lymphs (auto) 1.1 Absolute Monos (auto) 0.7 Absolute Eos (auto) 0.2 Absolute Basos (auto) 0 Absolute Nucleated RBC 0 Nucleated RBC % 0.1 Sodium Potassium Chloride Carbon Dioxide Anion Gap BUN Creatinine Est GFR ( Amer) Est GFR (Non-Af Amer) BUN/Creatinine Ratio Glucose Calcium Magnesium 2.0 Troponin I 0.03 B-Natriuretic Peptide 451 H 08/30/16 06:42 WBC RBC Hgb Hct MCV MCH MCHC RDW Plt Count MPV Neut % (Auto) Lymph % (Auto) Dale % (Auto) Eos % (Auto) Baso % (Auto) Absolute Neuts (auto) Absolute Lymphs (auto) Absolute Monos (auto) Absolute Eos (auto) Absolute Basos (auto) Absolute Nucleated RBC Nucleated RBC % Sodium 134 Potassium 3.9 Chloride 101 Carbon Dioxide 28 Anion Gap 5 BUN 21 Creatinine 0.62 Est GFR ( Amer) 116.6 Est GFR (Non-Af Amer) 90.6 BUN/Creatinine Ratio 33.9 H Glucose 85 Calcium 8.4 L Magnesium Troponin I B-Natriuretic Peptide Orthopedic exam unchanged, wounds benign, active DF/PF right ankle, calf non tender and soft. Assessment: []s/p gamma nail for intertrochanteric right hip fracture POD#3 Plan: [][facility] rehab today [place] may be removed in 10 days May shower Follow up 2-[address] Spence
--- NOTE | 2016-08-30 09:49 | PN ---
Subjective Date of Service: 08/30/16 Interval History: Patient OOB to chair. She reports improvement in symptoms yesterday; she reports persistent cough but feels as if the congestion is breaking up. She denies CP, SOB, abd pain, n/v. Daughter at bedside. Both in agreement with plan for PMRU. No acute concerns expressed by nursing. Family History: Unchanged from Admission Social History: Unchanged from Admission Past Medical History: Unchanged from Admission Objective Active Medications: Acetaminophen (Tylenol Tab*) 650 mg PO Q6H PRN PRN Reason: FEVER/PAIN Hydrocodone Bitart/Acetaminophen ([place] 5-325 Tab*) 1 tab PO Q4H PRN PRN Reason: PAIN Last Admin: 08/30/16 09:01 Dose: 1 tab Albuterol/Ipratropium (Duoneb (Albuterol 2.5 Mg/Ipratropium 0.5 Mg)) 1 neb INH [id number] AWAKE PRN PRN Reason: COUGH Last Admin: 08/28/16 23:18 Dose: 1 neb Benzonatate (Tessalon Cap*) 100 mg PO Q12HR [facility] Last Admin: 08/30/16 09:00 Dose: 100 mg Calcium/Vitamin D (Oscal D Tab 250/125*) 2 tab PO BID [facility] Last Admin: 08/30/16 09:00 Dose: 2 tab Cetirizine HCl (Zyrtec*) 10 mg PO DAILY [facility] Last Admin: 08/30/16 09:00 Dose: 10 mg Cyclobenzaprine HCl (Flexeril Tab*) 5 mg PO BID PRN PRN Reason: SPASMS Last Admin: 08/29/16 21:26 Dose: 5 mg Docusate Sodium (Colace Cap*) 100 mg PO DAILY PRN PRN Reason: CONSTIPATION Guaifenesin (Robitussin*) 5 ml PO Q6H PRN PRN Reason: COUGH Last Admin: 08/30/16 02:18 Dose: 5 ml Heparin Sodium (Porcine) (Heparin Vial(*)) 5,000 units SUBCUT Q12HR [facility] Last Admin: 08/30/16 09:01 Dose: 5,000 units Lactase (Lactaid Fast Act) 9,000 unit PO AC [facility] Last Admin: 08/30/16 08:59 Dose: 9,000 unit Magnesium Hydroxide (Milk Of Magnesia Liq*) 30 ml PO Q6H PRN PRN Reason: CONSTIPATION Melatonin (Melatonin (Nf)) 3 mg PO BEDTIME PRN; Protocol PRN Reason: Sleep Metoprolol Tartrate (Lopressor Tab*) 25 mg PO 1199,1999 [facility] Last Admin: 08/29/16 21:24 Dose: 25 mg Morphine Sulfate (Morphine Inj (Syringe)*) 2 mg IV Q2H PRN PRN Reason: PAIN - MILD Last Admin: 08/29/16 13:54 Dose: 2 mg Pto Ipratropium ([place] (Nasal)) 2 spray BOTH NARES TID [facility] Last Admin: 08/30/16 09:04 Dose: 2 spray Pto Nf Med* Simethicone 125mg Tabs 1 admin PO Q6H PRN PRN Reason: Flatulence Last Admin: 08/29/16 19:50 Dose: 1 admin Non Formulary Med* Cranberry Macrocarp 400mg 1 admin PO DAILY [facility] Last Admin: 08/30/16 09:16 Dose: Not Given Ondansetron HCl (Zofran Inj*) 4 mg IV Q6H PRN PRN Reason: NAUSEA Pantoprazole Sodium (Protonix Tab (Nf)) 40 mg PO BID [facility] Last Admin: 08/30/16 07:48 Dose: 40 mg Polyethylene Glycol/Electrolytes (Miralax*) 17 gm PO DAILY PRN PRN Reason: CONSTIPATION Throat Lozenges (Chloraseptic Edyta*) 1 edyta PO Q6H PRN PRN Reason: SORE THROAT Vital Signs 08/29/16 08/29/16 08/29/16 10:25 10:45 11:37 Temperature Pulse Rate Respiratory 18 18 Rate Blood Pressure (mmHg) O2 Sat by Pulse 92 Oximetry 08/29/16 08/29/16 08/29/16 11:55 12:45 13:54 Temperature 97.5 F Pulse Rate 148 Respiratory 18 16 18 Rate Blood Pressure 107/64 (mmHg) O2 Sat by Pulse 95 Oximetry 08/29/16 08/29/16 08/29/16 14:54 16:00 16:02 Temperature 97.2 F Pulse Rate 114 Respiratory 18 20 Rate Blood Pressure 108/50 (mmHg) O2 Sat by Pulse 90 90 Oximetry 08/29/16 08/29/16 08/29/16 17:14 19:14 20:00 Temperature Pulse Rate Respiratory 18 18 18 Rate Blood Pressure (mmHg) O2 Sat by Pulse Oximetry 08/29/16 08/29/16 08/29/16 20:27 21:26 23:26 Temperature 97.8 F Pulse Rate 106 Respiratory 18 18 18 Rate Blood Pressure 126/73 (mmHg) O2 Sat by Pulse 92 Oximetry 08/29/16 08/30/16 08/30/16 23:52 00:00 02:18 Temperature 98.0 F Pulse Rate 102 Respiratory 18 18 Rate Blood Pressure 135/66 (mmHg) O2 Sat by Pulse 98 98 Oximetry 08/30/16 08/30/16 08/30/16 03:41 07:48 09:01 Temperature 97.9 F 98.5 F Pulse Rate 97 104 Respiratory 16 16 16 Rate Blood Pressure 127/65 120/58 (mmHg) O2 Sat by Pulse 100 90 Oximetry Oxygen Devices in Use Now: Nasal Cannula - 2L Appearance: Elderly female, OOB to chair, in NAD Eyes: PERRLA Ears/Nose/Mouth/Throat: Clear Oropharnyx, Mucous Membranes Moist Neck: NL Appearance and Movements; NL JVP Respiratory: Symmetrical Chest Expansion and Respiratory Effort, Clear to Auscultation Cardiovascular: NL Sounds; No Murmurs; No JVD, RRR Abdominal: NL Sounds; No Tenderness; No Distention Extremities: No Edema Skin: No Rash or Ulcers Neurological: Alert and Oriented x 3 Lines/Tubes/Other Access: Clean, Dry and Intact Peripheral IV Nutrition: Taking PO's Result Diagrams: 08/30/16 06:42 08/30/16 06:42 Microbiology and Other Data: Microbiology 08/25/16 18:35 Influenza Types A,B Antigen (SANTANA) - Final Nasal Specimen received for Influenza A/B Molecular testing 08/25/16 05:40 Nasal Screen MRSA (PCR)(SANTANA) - Final Nasal Mrsa Negative Assess/Plan/Problems-Billing Assessment: Ms. Mccollum is an 89 yo female with PMH significant for sinus tachycardia, GERD and diverticulitis who presented to the emergency room after falling at home., resulting in a right hip fracture. - Patient Problems (1) Hip fracture, right Code(s): S72.001A - FRACTURE OF UNSP PART OF NECK OF RIGHT FEMUR, INIT Comment : Dispo per Ortho - POD #3 Pain management, bowel regimen. PMRU (2) Bronchitis Code(s): J40 - BRONCHITIS, NOT SPECIFIED ACUTE OR CHRONIC Comment: Improving Afebrile, leukocytosis resolved; negative blood cx Continue guaifenesin, anti-tussives, finished azithromycin course Influenza negative, UA negative - chest xray showing chronic CHF or interstitial disease; and a more confluent density at the medical aspect of LLL which could represent consolidation and/or atelectasis. (3) Sinus tachycardia Code(s): R00.0 - TACHYCARDIA, UNSPECIFIED Comment: Now improved following furosemide, HR 90s Suspect secondary to hypervolemia. EKG showing sinus tachycardia no acute ischemic chnages. No CP. Troponin negative. BNP 400. Continue home metoprolol. (4) GERD (gastroesophageal reflux disease) Code(s): K21.9 - GASTRO-ESOPHAGEAL REFLUX DISEASE WITHOUT ESOPHAGITIS Comment : Asymptomatic. Continue pantoprazole. (5) DVT prophylaxis Code(s): TJP5139 - Comment: Continue heparin SQ. (6) DNR (do not resuscitate) Status and Disposition: Inpatient. fx hip. Discharge to [facility].
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
== END 2016-08-30 10:40 | DRG 482 ==
LOC: ED 02:20 → SSU 04:53
PROVIDERS: ADMIT Hospitalist; ATTEND Hospitalist
PROC: 0QS606Z Reposition Right Upper Femur with Intramedullary Internal Fixation Device, Open Approach (ICD-10-PCS; principal; 2016-08-27 11:45)
DX: S72.141A Displaced intertrochanteric fracture of right femur, initial encounter for closed fracture (principal); E86.1 Hypovolemia; S72.001A Fracture of unspecified part of neck of right femur, initial encounter for closed fracture; K44.9 Diaphragmatic hernia without obstruction or gangrene; K21.9 Gastro-esophageal reflux disease without esophagitis; R00.0 Tachycardia, unspecified; M19.90 Unspecified osteoarthritis, unspecified site; J40 Bronchitis, not specified as acute or chronic; D72.829 Elevated white blood cell count, unspecified; W18.39XA Other fall on same level, initial encounter; Z66 Do not resuscitate; Y92.89 Other specified places as the place of occurrence of the external cause; Z88.6 Allergy status to analgesic agent; Z88.8 Allergy status to other drugs, medicaments and biological substances; Z97.4 Presence of external hearing-aid; Z82.49 Family history of ischemic heart disease and other diseases of the circulatory system; Z98.42 Cataract extraction status, left eye; Z98.41 Cataract extraction status, right eye
CPT/HCPCS: 36415; 70450; 71010; 72192; 76000; 80048; 80053; 81003; 81015; 83735; 83880; 84145; 84484; 85014; 85018; 85025; 85610; 85730; 87040; 87077; 87086; 87502; 87641; 93005; 94640; 94760; A9270-GY; C1713; C1776; J0690; J1100; J1644; J1940; J2250; J2270; J2405; J3010

== ENCOUNTER 2016-08-29 08:39 | Inpatient (IN) | payer MEDICARE, BC ==
[2016-08-30] MEDS ORDERED: Senna TAB PO PRN (11:26)
[2016-08-30] MEDS ORDERED: Bisacodyl SUPP* 10 MG SUPP PR PRN (11:26)
[2016-08-30] MEDS ORDERED: Magnesium Hydroxide LIQ* 30 ML UDC PO PRN (11:26)
[2016-08-30] MEDS ORDERED: Acetaminophen TAB* 325 MG PO PRN (11:26)
[2016-08-30] MEDS ORDERED: Albuterol/Ipratropium NEB.SOL* Albuterol 2.5 MG/Ipratropium 0.5 MG 3 ML INH PRN (11:40)
[2016-08-30] MEDS ORDERED: Cyclobenzaprine TAB* 10 MG PO PRN (11:41)
[2016-08-30] MEDS: Metoprolol Tartrate TAB* 25 MG PO SCH ×2 (12:45→20:11)
[2016-08-30] MEDS: Lactase Enzyme (NF) 3,000 UNIT TAB PO SCH ×2 (12:46→18:03)
[2016-08-30] MEDS ORDERED: SIMETHICONE 125 MG PO PRN ×2 (13:00→19:53)
[2016-08-30] MEDS ORDERED: guaiFENesin LIQ* 100 MG/5 ML UDC PO PRN (14:53)
[2016-08-30] MEDS ORDERED: Omeprazole CAP* 20 MG PO SCH (16:30)
[2016-08-30] MEDS ORDERED: CMCS: Pantoprazole TAB (NF) 40 MG TAB PO SCH (17:15)
[2016-08-30] MEDS: CMCS: Pantoprazole TAB (NF) 40 MG TAB PO SCH (17:17)
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
[2016-08-30] MEDS ORDERED: Calcium Carbonate CHEW TAB* 500 MG (TUMS) PO PRN (18:29)
[2016-08-30] MEDS: Benzonatate CAP* 100 MG PO SCH (20:10)
[2016-08-30] MEDS: Heparin VIAL(*) 5000 UNITS/ML VIAL (FIVE THOUSAND) SUBCUT SCH (20:13)
[2016-08-30] MEDS: Docusate CAP* 100 MG PO SCH (20:15)
[2016-08-30] MEDS: HYDROcodone/ACETAMIN 5-325 MG* 1 TAB PO PRN (22:09)
[2016-08-31] MEDS: HYDROcodone/ACETAMIN 5-325 MG* 1 TAB PO PRN ×3 (04:18→12:39)
[2016-08-31] MEDS: CMCS: Pantoprazole TAB (NF) 40 MG TAB PO SCH (06:10)
[2016-08-31 06:18] VITALS: BP 132/68
[2016-08-31 06:31] LABS: Hematocrit 29 % (35-47); Hemoglobin 10.1 g/dl (12.0-16.0); Mean Corpuscular HGB Conc 34 g/dl (31-36); Mean Corpuscular Hemoglobin 32 pg (27-31); Mean Corpuscular Volume 93 fL (80-97); Mean Platelet Volume 7 um3 (7.4-10.4); Red Blood Count 3.15 10^6/ul (4.0-5.4); Red Cell Distribution Width 13 % (10.5-15); White Blood Count 8.7 10^3/ul (3.5-10.8)
[2016-08-31 06:51] LABS: Albumin 2.6 g/dL (3.2-5.2); BUN/Creatinine Ratio 36.2 (8-20); Calcium 8.9 mg/dL (8.6-10.3); EGFR African American 125.9 (>60); EGFR Non-African American 97.9 (>60); Globulin 2.5 g/dL (2-4); Potassium 3.8 mmol/L (3.5-5.0); Total Bilirubin 0.7 mg/dL (0.2-1.0); Total Protein 5.1 g/dL (6.4-8.9)
[2016-08-31] MEDS ORDERED: Calcium/Vitamin D TAB 250/125* TAB PO SCH ×2 (08:00→09:00)
[2016-08-31] MEDS: LACTASE ENZYME 9000 UNIT PO SCH ×2 (08:29→12:38)
[2016-08-31] MEDS: Benzonatate CAP* 100 MG PO SCH (08:30)
[2016-08-31] MEDS: Docusate CAP* 100 MG PO SCH (08:31)
[2016-08-31] MEDS: Heparin VIAL(*) 5000 UNITS/ML VIAL (FIVE THOUSAND) SUBCUT SCH (08:35)
[2016-08-31] MEDS ORDERED: Cetirizine* 10 MG TAB PO SCH (09:00)
[2016-08-31] MEDS ORDERED: IPRATROPIUM BROMIDE BOTH NARES SCH ×2 (09:00→21:00)
[2016-08-31] MEDS ORDERED: guaiFENesin LIQ* 100 MG/5 ML UDC PO SCH (09:00)
[2016-08-31] MEDS ORDERED: BEANO PO PRN (09:23)
[2016-08-31] MEDS ORDERED: Docusate CAP* 100 MG PO PRN (10:48)
[2016-08-31] MEDS ORDERED: Loperamide CAP* 2 MG PO PRN (10:49)
--- NOTE | 2016-08-31 12:09 | PMRUTEAM ---
PMRU: Goals Current Status: Nursing: Current Status Skin Deviations [Right Elbow] Abrasion Skin Deviations [Right Hip] Incision Skin Deviation Description [ tegaderm intact Right Elbow] Skin Deviation Description [ incisions x3, distal incision BOTTLE DEALER- no drainage, Right Hip] proximal 2 incisions covered with telfa and paper tape Physical Therapy: Current Status Bed Mobility Assistance mod A Transfer Moblility Assistance min A Transfer/Bed Mobility Rolling Walker Recommended Devices Ambulation Assistance min A Ambulation Assistive Devices Rolling Walker Stairs Assistance not tested Stairs Recommended Devices Straight Cane,One Rail Number of Stairs 4 Occupational Therapy: Current Status Upper Body Dressing Supervision,Min Assist Lower Body Dressing Max Asst,Total Assist Bathing Mod Assist Toileting Total Assist Toilet Transfer Min Assist 2 Eating Supervision Rec Therapy: Current Status Summary of Assessment and Pt. was open to conversation - pleasant, Clinical Impression cooperative, and talkative throughout. Pt. states she enjoys her life and engages in leisure activities regularly. Pt. has strong family support and her daughter was there during our conversation. Pt. had leisure activities in her room to engage in - word search puzzles. Treatment Goals Pt. will engage in leisure activities while on the unit. Treatment Plan Provide RT services and encourage involvement. Goals: Physical Therapy: Updated Goals Modified independent bed mobility, transfers and ambulation with a rolling walker. Stairs x4 with cane and 1 rail. Occupational Therapy: Initial Goals Goals to be Completed in (Days 10-14 ) Upper Body Bathing Routine Independent Lower Body Bathing Routine Modified Independent with Upper Body Dressing Routine Independent Lower Body Dressing Routine Modified Independent with Toilet Hygeine and Clothing Modified Independent with Management Routine Toilet Transfer Routine Modified Independent with Tub Transfer Routine Modified Independent with Functional Transfers for ADL Modified Independent with Grooming Routine Independent Feeding Routine Independent Care Plan: Care Plan ADL's - Improve/Maintain Start: 08/30/16 15:34 Freq: QSHIFT Status: Active Target: Activity Type Activity Date Activity User E-Sign Co-Sign Detail Recorded Client Recorded Date Recorded By Document 08/30/16 15:34 [id number] 08/30/16 15:36 [id number] 08/30/16 15:34 PMRU Outcome: ADL's/ADL Transfers Orders/Interventions Occupational Therapy Evaluation & Treatment Communication Tool in Patient Room Device Yes: FWW, gait belt, 3:1 commode Address Deficits Secondary To: right hip fx Patient to receive OT 5x/wk for 60-120 Therex min/day Self Care Management Group Therapy UE/LE ADL's with Assist Yes: Castro ADL Transfers with Assist Yes: Castro Toileting: Transfers,Clothing Management Yes: Castro ,Hygeine w/Assist Progression Toward Outcome/Goals Progressing Cardiovascular- Improve/Maintain Start: 08/30/16 19:31 Freq: QSHIFT Status: Active Target: Activity Type Activity Date Activity User E-Sign Co-Sign Detail Recorded Client Recorded Date Recorded By Document 08/31/16 03:13 [id number] 08/31/16 03:17 [id number] 08/31/16 03:13 PMRU Outcome: Cardiovascular Vital Signs q Shift for 48hrs Then BID Yes Daily Weight Ordered No Current Cardiovascular Outcome/Goal Maintain/ Achieve Baseline HR, BP , Perfusion Improve HR Within Prescribed Parameters Free of Abnormal Cardiac Symptoms Progression Toward Outcome/Goal Progressing DVT Prophylaxis- Improve/Maintain Start: 08/30/16 19:31 Freq: QSHIFT Status: Active Target: Activity Type Activity Date Activity User E-Sign Co-Sign Detail Recorded Client Recorded Date Recorded By Document 08/31/16 03:13 [id number] 08/31/16 03:17 [id number] 08/31/16 03:13 PMRU Outcome: DVT Prophylaxis Outcome/Goals Remains Free of DVT Progression Toward Outcome/Goals Progressing Discharge Planning - Improve/Maintain Start: 08/30/16 19:31 Freq: QSHIFT Status: Active Target: Activity Type Activity Date Activity User E-Sign Co-Sign Detail Recorded Client Recorded Date Recorded By Document 08/31/16 03:13 [id number] 08/31/16 03:17 [id number] 08/31/16 03:13 PMRU Outcome: Discharge Planning Identify Patient Needs yes Update Patient Family No Outcome/Goals Demonstrates Understanding of Discharge Plan Progression Toward Outcome/Goals Progressing Education-Improve/Maintain Start: 08/30/16 19:31 Freq: QSHIFT Status: Active Target: Activity Type Activity Date Activity User E-Sign Co-Sign Detail Recorded Client Recorded Date Recorded By Document 08/31/16 03:13 [id number] 08/31/16 03:17 [id number] 08/31/16 03:13 PMRU Outcome: Education Outcome/Goals Demonstrate/ Verbalize Understanding of Written Discharge Instructions Encourage Questions Progression Toward Outcome/Goals Progressing /GI-Improve/Maintain Start: 08/30/16 19:31 Freq: QSHIFT Status: Active Target: Activity Type Activity Date Activity User E-Sign Co-Sign Detail Recorded Client Recorded Date Recorded By Document 08/31/16 03:13 [id number] 08/31/16 03:17 [id number] 08/31/16 03:13 PMRU Outcome: Genitourinary/ Gastrointestinal Genitourinary- Outcome/Goals Maintain/ Achieve Urinary Continence Maintain/ Achieve Adequate Urinary Output Remain Free of Hospital- Acquired UTI Gastrointestinal-Outcome/Goals Maintain/ Achieve Bowel Regularity in Accordance with Pt's Baseline Prevent Constipation Bowel Regularity at Home Progression Toward Outcome/Goals - Progressing Progression Toward Outcome/Goals - GI Progressing Mobility- Improve/Maintain Start: 08/30/16 11:37 Freq: QSHIFT Status: Active Target: Activity Type Activity Date Activity User E-Sign Co-Sign Detail Recorded Client Recorded Date Recorded By Document 08/30/16 11:37 [id number] 08/30/16 11:37 [id number] 08/30/16 11:37 PMRU Outcome: Mobility Physical Therapy Evaluation and Yes Treatment Activity OOB with Assistance Yes WBAT Yes Device Yes Assistance Yes Patient to be seen 5x/wk for 60-120 min/ Therex day for: Mobility Training Gait Training Balance Outcome/Goals Maintain/ Achieve Baseline Mobility Status Improve Mobility Status Demonstrates Proper Use of Assistive Devices Free from Complications of Immobility Bed Mobility Yes: Independent Transfers Yes: Modified independent with rolling walker Gait x ft Yes: Modified independent 150 ' with rolling walker Up/Down Stairs Yes: Independent 4 steps 1 rail, straight cane With HEP Yes Pain/Comfort- Improve/Maintain Start: 08/30/16 19:31 Freq: QSHIFT Status: Active Target: Activity Type Activity Date Activity User E-Sign Co-Sign Detail Recorded Client Recorded Date Recorded By Document 08/31/16 03:13 [id number] 08/31/16 03:17 [id number] 08/31/16 03:13 PMRU Outcome: Pain/Comfort Outcome/Goals Demonstrates Knowledge and Use of Available Comfort Measures Achieves Acceptable Comfort/Pain Level as Determined by Patient/Condit Maintain Comfort Level Allowing Patient to Fully Participate in Rehab Progression Toward Outcome/Goals Progressing Respiratory - Improve/Maintain Start: 08/30/16 19:31 Freq: QSHIFT Status: Active Target: Activity Type Activity Date Activity User E-Sign Co-Sign Detail Recorded Client Recorded Date Recorded By Document 08/31/16 03:13 [id number] 08/31/16 03:17 [id number] 08/31/16 03:13 PMRU Outcome: Respiratory Does Patient Have a Trach No Outcome/Goals Maintain/ Improve O2 Sat per MD Order Maintain/ Improve Baseline Respiratory Status Maintain/ Improve Activity Tolerance Prevent Pneumonia/ Atelectasis Progression Toward Outcome/Goals Progressing Safety- Improve/Maintain Start: 08/30/16 19:31 Freq: QSHIFT Status: Active Target: Activity Type Activity Date Activity User E-Sign Co-Sign Detail Recorded Client Recorded Date Recorded By Document 08/31/16 03:13 [id number] 08/31/16 03:17 [id number] 08/31/16 03:13 PMRU Outcome: Safety Outcome/Goals Remain Free of Injury or Harm Cooperates with Safety Measures for Least Restrictive Environment Prevent Falls/ Injury Progression Toward Outcome/Goals Progressing Skin- Improve/Maintain Start: 08/30/16 19:31 Freq: QSHIFT Status: Active Target: Activity Type Activity Date Activity User E-Sign Co-Sign Detail Recorded Client Recorded Date Recorded By Document 08/31/16 03:13 [id number] 08/31/16 03:17 [id number] 08/31/16 03:13 PMRU Outcome: Skin Skin Risk Level Low Skin Orders Dressing Change Turn/Position q2hr While in Bed Outcome/Goals Maintain/ Improve Skin Intergrity Free from Decubitus Surgical Incisions Healing Progression Toward Outcome/Goals Progressing Medicine Note: Length of Stay: [13 days] Anticipated Discharge Destination: home with family support Tentative Discharge Date: [09/12/16] Discharged to: [home]
[2016-08-31] MEDS ORDERED: Metoprolol Tartrate TAB* 25 MG PO ONE (12:31)
[2016-08-31] MEDS: Metoprolol Tartrate TAB* 25 MG PO SCH (12:38)
--- NOTE | 2016-08-31 13:19 | RAD ---
Indication: Cough, tachycardia. History of respiratory disease. Comparison: August 25, 2016 Technique: Sitting AP and lateral chest views. Report: Large hiatal hernia visualized at the retrocardiac region and inferior LEFT thorax in part due to leftward rotation. Associated LEFT basilar atelectasis. Small pleural effusions. Near complete resolution of previous perihilar opacities and interstitial prominence compared with the recent exam most consistent with resolution of pulmonary vascular congestion. Elevated lung volumes with both mild coarsening and rarefaction of the interstitial markings. Negative for cardiomegaly. Unremarkable central pulmonary vasculature. IMPRESSION: The constellation of findings is most consistent with near complete resolution of pulmonary vascular congestion and interstitial edema compared with the August 25, 2016 exam. Small pleural effusions are new. Unchanged large hiatal hernia with associated basilar atelectasis.
--- NOTE | 2016-08-31 13:48 | ECHO ---
Patient: JASON GAMEZ Rec#: [id number] : 1925 Date: 08/31/2016 Age: 89y Height: 158.75 cm / 62.5 in Weight: 45.36 kg / 100.0 lbs Sex: F BSA: 1.43 Room#: [facility] Type: Inpatient Referring: Jocelyn Worley MD Reading: Ken Post MD Notch Grinder: Eva Vivas Notch Grinder: Petra Gautam KIRSTY CC: Ruben Chan MD Transthoracic Echocardiogram Indication: Tachycardia BP: 132/68 HR: 140 Rhythm: Tachycardia Findings History: Fractured right hip, s/p ORIF 08/27/16, GERD, tachycardia. Technical Comments: The study quality is good. Completed at 1317. Left Ventricle: The left ventricular chamber size is decreased. Moderate concentric left ventricular hypertrophy is observed. The left ventricle appears hyperdynamic. The estimated ejection fraction is greater than 65%. Paradoxical septal wall motion secondary to conduction abnormality. There is no consistent Doppler evidence of clinically significant diastolic dysfunction. Left Atrium: The left atrial chamber size is normal. Right Ventricle: Moderator Band present. The right ventricular cavity size is normal. The right ventricular global systolic function is hyperdynamic. The right ventricular free wall appears hyperdynamic. Consequently, the septal wall appears hypokinetic. Right Atrium: The right atrial cavity size is normal. Aortic Valve: The aortic valve is trileaflet. Mild aortic leaflet calcification is visualized. Systolic excursion of the aortic valve cusps is reduced. There is aortic annular calcification. There is mild aortic regurgitation. There is mild aortic stenosis. The highest aortic valve velocity was obtained with the standard probe from the A5C view. Mitral Valve: Moderate mitral annular calcification present. The mitral valve leaflets are mildly thickened. There is mild to moderate mitral regurgitation. There is no evidence of mitral stenosis. Tricuspid Valve: There is tricuspid annular calcification. The tricuspid valve leaflets are mildly thickened. There is moderate to severe tricuspid regurgitation. The tricuspid regurgitant jet is extending to dome (back wall of RA). There is evidence of severe pulmonary hypertension. There is no tricuspid stenosis. Pulmonic Valve: The pulmonic valve appears normal. There is moderate pulmonic regurgitation. There is no pulmonic stenosis. Pericardium: There is no significant pericardial effusion. Aorta: The ascending aorta is not well visualized. There is no dilatation of the aortic arch. There is no dilation of the aortic root. Pulmonary Artery: The main pulmonary artery appears normal. Venous: The venous system is not well visualized. Summary: There was not any prior study for comparison. Conclusions The left ventricular chamber size is decreased. Moderate concentric left ventricular hypertrophy is observed. The left ventricle appears hyperdynamic. The estimated ejection fraction is greater than 65%. Paradoxical septal wall motion secondary to conduction abnormality. There is mild aortic regurgitation. There is mild aortic stenosis. There is mild to moderate mitral regurgitation. There is moderate to severe tricuspid regurgitation. There is evidence of severe pulmonary hypertension. There is moderate pulmonic regurgitation. Measurements Name Value Normal Range RVIDd (AP) 2D 1.7 cm (0.9 - 2.6) RVDdMajor (2D) 3 cm (2.2 - 4.4) RAd ISD 4CH 4.9 cm (3.4 - 4.9) RA (A4C)W 3.9 cm (2.9 - 4.6) IVSd (2D) 1.3 cm (0.6 - 1) LVPWd (2D) 1.4 cm (0.6 - 1) LVIDd (2D) 2.6 cm (3.6 - 5.4) LVIDs (2D) 1.9 cm - LV FS (2D) 27 % (25 - 45) Aortic Annulus 1.8 cm (1.4 - 2.6) Ao root diameter (2D) 2.6 cm (2.1 - 3.5) Aortic arch 2 cm (1.8 - 3.4) LA dimension (AP) 2D 2.2 cm (2.3 - 3.8) LAd ISD 4CH 4.4 cm (2.9 - 5.3) LA ISD 4CH W 3.3 cm (2.5 - 4.5) Name Value Normal Range LA ESV SP 4CH (A/L) 29 ml - LA ESV SP 2CH (A/L) 35 ml - LA ESV BP (A/L) 34 ml - LA ESV BP (A/L) index 23.6 ml/m2 - LA ESV SP 4CH (MOD) 27 ml - LA ESV SP 2CH (MOD) 30 ml - Name Value Normal Range LV septal e' Vmax 0.07 m/sec - LV lateral e' Vmax 0.05 m/sec - Name Value Normal Range AV Vmax 2.1 m/sec - AV VTI 28.7 cm - AV peak gradient 17.95 mmHg - AV mean gradient 9.8 mmHg - LVOT diameter 2 cm - LVOT Vmax 1 m/sec - LVOT VTI 14.5 cm - LVOT peak gradient 4.28 mmHg - LVOT mean gradient 2.25 mmHg - ROMINA (continuity Vmax) 1.5 cm2 - ROMINA (continuity VTI) 1.6 cm2 - AR PHT 296 msec - AR peak gradient 78.82 mmHg - RAMILA Vmax 0.5 m/sec - Name Value Normal Range TR Vmax 4 m/sec - TR peak gradient 63 mmHg - RAP 8 mmHg - RVSP 71 mmHg - Name Value Normal Range PV Vmax 1.1 m/sec - PV peak gradient 4.6 mmHg - MT end-diastolic Vmax 1.78 m/sec -
[2016-08-31] MEDS ORDERED: Iohexol 350* (CONTRAST) 500 ML MDV IV ONE (15:01)
--- NOTE | 2016-08-31 15:02 | RAD ---
HISTORY: Status post right hip replacement, right leg edema and pain COMPARISONS: None relevant TECHNIQUE: Multiple transverse and longitudinal ultrasound images were obtained of the right lower extremity from the level of the common femoral vein inferiorly through to the infrapopliteal veins using grayscale, color Doppler, and spectral Doppler imaging with and without compression and with augmentation. Comparison images were obtained of the contralateral common femoral vein. FINDINGS: VEINS: The venous system of the right lower extremity is compressible throughout its course, with normal flow on color Doppler imaging and normal response to augmentation on spectral Doppler imaging. SOFT TISSUES: Unremarkable. OTHER FINDINGS: None. IMPRESSION: NO RIGHT LOWER EXTREMITY DEEP VEIN THROMBOSIS
--- NOTE | 2016-08-31 15:54 | RAD ---
HISTORY: Concern for PE. No other history is provided COMPARISONS: None TECHNIQUE: Multiple contiguous axial CT scans of the chest were obtained after the administration of nonionic intravenous contrast, timed to the pulmonary arterial phase of contrast enhancement.. Coronal and sagittal multiplanar reformations are also submitted for review. FINDINGS: NECK AND THYROID: The lower neck and thyroid are unremarkable. CHEST WALL: There is no lower cervical, axillary, or supraclavicular lymphadenopathy by size criteria. HEART AND PERICARDIUM: The heart is unremarkable. AORTA AND PULMONARY VASCULATURE: There is no pulmonary arterial filling defect to suggest pulmonary embolism. There is no linear filling defect within the aorta to suggest aortic dissection. MEDIASTINUM: There is no mediastinal lymphadenopathy by size criteria. RENETTA: There is no hilar lymphadenopathy by size criteria. AIRWAY AND ESOPHAGUS: The airway is unremarkable, without endobronchial filling defect. The esophagus is grossly normal. LUNG PARENCHYMA: There is compressive atelectasis of the left lower lobe PLEURA: There are small bilateral pleural effusions UPPER ABDOMEN: There is a very large para esophageal hiatal hernia BONES AND SOFT TISSUES: No bone or soft tissue abnormalities are noted. OTHER: None. IMPRESSION: 1. NO PULMONARY ARTERIAL FILLING DEFECTS TO SUGGEST PULMONARY EMBOLISM. 2. LARGE PARA ESOPHAGEAL HIATAL HERNIA WITH ASSOCIATED COMPRESSIVE ATELECTASIS OF LEFT LOWER LOBE. 3. SMALL BILATERAL PLEURAL EFFUSIONS
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
== END 2016-08-31 18:12 | disposition short-term general hospital (02) | DRG 560 ==
LOC: PMRU 08-30 10:40
PROVIDERS: ADMIT Physical Medicine & Rehabilitation; ATTEND Physical Medicine & Rehabilitation
PROC: F07Z5ZZ Bed Mobility Treatment (ICD-10-PCS; principal; 2016-08-30)
PROC: F07Z9ZZ Gait Training/Functional Ambulation Treatment (ICD-10-PCS; 2016-08-30)
PROC: F07Z8ZZ Transfer Training Treatment (ICD-10-PCS; 2016-08-30)
PROC: F08Z0ZZ Bathing/Showering Techniques Treatment (ICD-10-PCS; 2016-08-30)
PROC: F08Z1ZZ Dressing Techniques Treatment (ICD-10-PCS; 2016-08-30)
PROC: F08Z3ZZ Feeding/Eating Treatment (ICD-10-PCS; 2016-08-30)
DX: S72.141D Displaced intertrochanteric fracture of right femur, subsequent encounter for closed fracture with routine healing (principal); K57.92 Diverticulitis of intestine, part unspecified, without perforation or abscess without bleeding; I27.2 Other secondary pulmonary hypertension; W18.39XD Other fall on same level, subsequent encounter; R00.0 Tachycardia, unspecified; K44.9 Diaphragmatic hernia without obstruction or gangrene; K21.9 Gastro-esophageal reflux disease without esophagitis; I36.1 Nonrheumatic tricuspid (valve) insufficiency; R05 Cough; Z79.899 Other long term (current) drug therapy; Z88.6 Allergy status to analgesic agent; Z88.8 Allergy status to other drugs, medicaments and biological substances
CPT/HCPCS: 36415; 71020; 71275; 80053; 84443; 85025; 85379; 93005; 93306; 94640; 94760; A9270-GY; J1644; Q9967

== ENCOUNTER 2016-08-30 10:40 | Inpatient (IN) | payer MEDICARE, BC ==
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
[2016-08-31 06:31] LABS: Hematocrit 29 % (35-47); Hemoglobin 10.1 g/dl (12.0-16.0); Mean Corpuscular HGB Conc 34 g/dl (31-36); Mean Corpuscular Hemoglobin 32 pg (27-31); Mean Corpuscular Volume 93 fL (80-97); Mean Platelet Volume 7 um3 (7.4-10.4); Red Blood Count 3.15 10^6/ul (4.0-5.4); Red Cell Distribution Width 13 % (10.5-15); White Blood Count 8.7 10^3/ul (3.5-10.8)
[2016-08-31 06:51] LABS: Albumin 2.6 g/dL (3.2-5.2); BUN/Creatinine Ratio 36.2 (8-20); Calcium 8.9 mg/dL (8.6-10.3); EGFR African American 125.9 (>60); EGFR Non-African American 97.9 (>60); Globulin 2.5 g/dL (2-4); Potassium 3.8 mmol/L (3.5-5.0); Total Bilirubin 0.7 mg/dL (0.2-1.0); Total Protein 5.1 g/dL (6.4-8.9)
--- NOTE | 2016-08-31 13:19 | RAD ---
Amended report to correct patient account number. Indication: Cough, tachycardia. History of respiratory disease. Comparison: August 25, 2016 Technique: Sitting AP and lateral chest views. Report: Large hiatal hernia visualized at the retrocardiac region and inferior LEFT thorax in part due to leftward rotation. Associated LEFT basilar atelectasis. Small pleural effusions. Near complete resolution of previous perihilar opacities and interstitial prominence compared with the recent exam most consistent with resolution of pulmonary vascular congestion. Elevated lung volumes with both mild coarsening and rarefaction of the interstitial markings. Negative for cardiomegaly. Unremarkable central pulmonary vasculature. IMPRESSION: The constellation of findings is most consistent with near complete resolution of pulmonary vascular congestion and interstitial edema compared with the August 25, 2016 exam. Small pleural effusions are new. Unchanged large hiatal hernia with associated basilar atelectasis. MTDD
--- NOTE | 2016-08-31 15:02 | RAD ---
Amended report to correct patient account number. HISTORY: Status post right hip replacement, right leg edema and pain COMPARISONS: None relevant TECHNIQUE: Multiple transverse and longitudinal ultrasound images were obtained of the right lower extremity from the level of the common femoral vein inferiorly through to the infrapopliteal veins using grayscale, color Doppler, and spectral Doppler imaging with and without compression and with augmentation. Comparison images were obtained of the contralateral common femoral vein. FINDINGS: VEINS: The venous system of the right lower extremity is compressible throughout its course, with normal flow on color Doppler imaging and normal response to augmentation on spectral Doppler imaging. SOFT TISSUES: Unremarkable. OTHER FINDINGS: None. IMPRESSION: NO RIGHT LOWER EXTREMITY DEEP VEIN THROMBOSIS MTDD
--- NOTE | 2016-08-31 15:54 | RAD ---
Amended report to correct patient account number. HISTORY: Concern for PE. No other history is provided COMPARISONS: None TECHNIQUE: Multiple contiguous axial CT scans of the chest were obtained after the administration of nonionic intravenous contrast, timed to the pulmonary arterial phase of contrast enhancement.. Coronal and sagittal multiplanar reformations are also submitted for review. FINDINGS: NECK AND THYROID: The lower neck and thyroid are unremarkable. CHEST WALL: There is no lower cervical, axillary, or supraclavicular lymphadenopathy by size criteria. HEART AND PERICARDIUM: The heart is unremarkable. AORTA AND PULMONARY VASCULATURE: There is no pulmonary arterial filling defect to suggest pulmonary embolism. There is no linear filling defect within the aorta to suggest aortic dissection. MEDIASTINUM: There is no mediastinal lymphadenopathy by size criteria. RENETTA: There is no hilar lymphadenopathy by size criteria. AIRWAY AND ESOPHAGUS: The airway is unremarkable, without endobronchial filling defect. The esophagus is grossly normal. LUNG PARENCHYMA: There is compressive atelectasis of the left lower lobe PLEURA: There are small bilateral pleural effusions UPPER ABDOMEN: There is a very large para esophageal hiatal hernia BONES AND SOFT TISSUES: No bone or soft tissue abnormalities are noted. OTHER: None. IMPRESSION: 1. NO PULMONARY ARTERIAL FILLING DEFECTS TO SUGGEST PULMONARY EMBOLISM. 2. LARGE PARA ESOPHAGEAL HIATAL HERNIA WITH ASSOCIATED COMPRESSIVE ATELECTASIS OF LEFT LOWER LOBE. 3. SMALL BILATERAL PLEURAL EFFUSIONS MTDD
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
[2016-09-02] MEDS ORDERED: Senna TAB PO PRN (10:16)
[2016-09-02] MEDS ORDERED: Al Hydrox/Mg Hydrox/Simet LIQ* 30 ML UDC PO PRN (10:16)
[2016-09-02] MEDS ORDERED: Bisacodyl SUPP* 10 MG SUPP PR PRN (10:16)
[2016-09-02] MEDS ORDERED: Magnesium Hydroxide LIQ* 30 ML UDC PO PRN (10:16)
[2016-09-02] MEDS ORDERED: Loperamide CAP* 2 MG PO PRN (10:43)
[2016-09-02] MEDS ORDERED: Simethicone CHEW TAB* 80 MG PO PRN (10:44)
[2016-09-02] MEDS ORDERED: BEANO PO PRN (10:49)
[2016-09-02] MEDS ORDERED: LACTASE ENZYME 3000 UNIT PO SCH (11:30)
[2016-09-02] MEDS: HYDROcodone/ACETAMIN 5-325 MG* 1 TAB PO PRN ×3 (13:55→22:58)
[2016-09-02] MEDS: Metoprolol Tartrate TAB* 25 MG PO SCH ×2 (13:56→20:39)
[2016-09-02] MEDS: Heparin VIAL(*) 5000 UNITS/ML VIAL (FIVE THOUSAND) SUBCUT SCH ×2 (14:00→21:24)
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
[2016-09-02] MEDS: IPRATROPIUM BROMIDE BOTH NARES SCH ×2 (15:14→20:42)
[2016-09-02] MEDS: LACTASE ENZYME 9000 UNIT PO SCH (16:58)
[2016-09-02] MEDS: Calcium/Vitamin D TAB 250/125* TAB PO SCH (17:36)
[2016-09-02] MEDS: CMC Pantoprazole TAB (NF) 40 MG TAB PO SCH (17:36)
[2016-09-02] MEDS: Levalbuterol 1.25MG/0.5ML NEB INH PRN (18:07)
[2016-09-02] MEDS: Benzonatate CAP* 100 MG PO SCH (20:39)
[2016-09-02] MEDS: guaiFENesin ER TAB 600 MG PO SCH (20:40)
[2016-09-02] MEDS: Potassium Chlor TAB* 20 MEQ TAB.ER PO SCH (20:41)
[2016-09-02] MEDS ORDERED: Pantoprazole TAB (NF) 40 MG TAB PO SCH (21:00)
[2016-09-02] MEDS: Cyclobenzaprine TAB* 10 MG PO PRN (21:51)
[2016-09-03] MEDS: Acetaminophen TAB* 325 MG PO PRN (02:39)
[2016-09-03] MEDS: HYDROcodone/ACETAMIN 5-325 MG* 1 TAB PO PRN ×5 (04:48→21:18)
[2016-09-03] MEDS: Heparin VIAL(*) 5000 UNITS/ML VIAL (FIVE THOUSAND) SUBCUT SCH ×3 (05:43→21:20)
[2016-09-03 06:07] LABS: Hematocrit 29 % (35-47); Hemoglobin 9.9 g/dl (12.0-16.0); Mean Corpuscular HGB Conc 34 g/dl (31-36); Mean Corpuscular Hemoglobin 32 pg (27-31); Mean Corpuscular Volume 95 fL (80-97); Mean Platelet Volume 7 um3 (7.4-10.4); Red Blood Count 3.06 10^6/ul (4.0-5.4); Red Cell Distribution Width 14 % (10.5-15); White Blood Count 10.5 10^3/ul (3.5-10.8)
[2016-09-03 06:22] LABS: Albumin 2.8 g/dL (3.2-5.2); BUN/Creatinine Ratio 22.1 (8-20); Calcium 8.6 mg/dL (8.6-10.3); EGFR African American 104.8 (>60); EGFR Non-African American 81.5 (>60); Globulin 2.5 g/dL (2-4); Total Bilirubin 0.5 mg/dL (0.2-1.0); Total Protein 5.3 g/dL (6.4-8.9)
[2016-09-03] MEDS: Calcium/Vitamin D TAB 250/125* TAB PO SCH ×2 (08:38→16:51)
[2016-09-03] MEDS: CMC Pantoprazole TAB (NF) 40 MG TAB PO SCH ×2 (08:38→16:51)
[2016-09-03] MEDS: Benzonatate CAP* 100 MG PO SCH ×2 (08:38→20:12)
[2016-09-03] MEDS: Cetirizine* 10 MG TAB PO SCH (08:38)
[2016-09-03] MEDS: Potassium Chlor TAB* 20 MEQ TAB.ER PO SCH ×2 (08:38→20:12)
[2016-09-03] MEDS: ceFUROXime TAB(*) 250 MG PO SCH ×2 (08:38→20:12)
[2016-09-03] MEDS: guaiFENesin ER TAB 600 MG PO SCH ×2 (08:39→20:12)
[2016-09-03] MEDS: LACTASE ENZYME 9000 UNIT PO SCH ×3 (08:39→16:48)
[2016-09-03] MEDS: Metoprolol Tartrate TAB* 25 MG PO SCH ×3 (08:39→20:12)
[2016-09-03] MEDS: IPRATROPIUM BROMIDE BOTH NARES SCH ×3 (08:40→20:19)
[2016-09-03] MEDS: Docusate CAP* 100 MG PO PRN (12:17)
[2016-09-03] MEDS: Cyclobenzaprine TAB* 10 MG PO PRN ×2 (13:48→22:01)
[2016-09-03] MEDS: Levalbuterol 1.25MG/0.5ML NEB INH PRN ×2 (14:42→19:58)
[2016-09-04] MEDS: Acetaminophen TAB* 325 MG PO PRN ×2 (00:05→10:37)
[2016-09-04] MEDS: HYDROcodone/ACETAMIN 5-325 MG* 1 TAB PO PRN ×6 (01:10→21:55)
[2016-09-04] MEDS: Heparin VIAL(*) 5000 UNITS/ML VIAL (FIVE THOUSAND) SUBCUT SCH ×3 (05:52→21:16)
[2016-09-04] MEDS: LACTASE ENZYME 9000 UNIT PO SCH ×3 (07:58→16:49)
[2016-09-04] MEDS: IPRATROPIUM BROMIDE BOTH NARES SCH ×3 (09:02→21:16)
[2016-09-04] MEDS: Calcium/Vitamin D TAB 250/125* TAB PO SCH ×2 (09:03→17:18)
[2016-09-04] MEDS: Benzonatate CAP* 100 MG PO SCH ×2 (09:03→21:12)
[2016-09-04] MEDS: Potassium Chlor TAB* 20 MEQ TAB.ER PO SCH ×2 (09:03→21:12)
[2016-09-04] MEDS: ceFUROXime TAB(*) 250 MG PO SCH ×2 (09:03→21:12)
[2016-09-04] MEDS: Cetirizine* 10 MG TAB PO SCH (09:03)
[2016-09-04] MEDS: CMC Pantoprazole TAB (NF) 40 MG TAB PO SCH ×2 (09:04→17:18)
[2016-09-04] MEDS: guaiFENesin ER TAB 600 MG PO SCH ×3 (09:04→21:20)
[2016-09-04] MEDS: Metoprolol Tartrate TAB* 25 MG PO SCH ×3 (09:04→21:11)
--- NOTE | 2016-09-04 12:30 | PMRUTEAM ---
PMRU: Goals Current Status: Nursing: Current Status Skin Deviations [Coccyx] Other Skin Deviations [Right Hip] Incision Skin Deviations [Right Hand] Bruise Skin Deviations [Right Knee] Bruise Skin Deviations [Right Thigh] Bruise Skin Deviations [Right Elbow] Laceration Skin Deviations [Left Hand] Abrasion Skin Deviation Description [ redness- s#3 cream applied Coccyx] Skin Deviation Description [ X3 juan Right Hip] Skin Deviation Description [ bruising behind right knee noticed by 4S nurse Right Knee] just prior to transfer. Incision with juan on outside of knee Skin Deviation Description [ entire inner thigh discolored Right Thigh] Skin Deviation Description [ skin tear closed. Scabbing over Right Elbow] Skin Deviation Description [ pinky, patient states happened when carried out on Left Hand] stretcher from house Physical Therapy: Current Status Bed Mobility Assistance Not Tested Transfer Moblility Assistance Contact Guard Assist Transfer/Bed Mobility Rolling Walker Recommended Devices Ambulation Assistance Contact Guard Assist Ambulation Assistive Devices Railings Number of Feet Patient 4' x 3 Ambulated Stairs Assistance Not Tested Stairs Recommended Devices Straight Cane Number of Stairs 4 Occupational Therapy: Current Status Upper Body Dressing Min Assist Lower Body Dressing Min Assist,Mod Assist Bathing Min Assist,Mod Assist Toileting Mod Assist,Max Asst Toilet Transfer Min Assist Shower Transfer Progress TBA Eating Independent Rec Therapy: Current Status Summary of Assessment and RT assessment complete and pt. is aware of Clinical Impression services. Pt. has been engaged in conversation and open to leisure visits. Pt. has leisure activities in her room to engage in - word search puzzles. Treatment Goals Pt. will engage in leisure activities while on the unit. Treatment Plan Provide RT services and encourage involvement. Social Work: Current Status Discharge Plan return home with home care svs and family support Potential for Family Training pt's daughter is involved and attentive Anticipated Discharge Home Destination Discharge With with home care svs and family support Goals: Occupational Therapy: Initial Goals Goals to be Completed in (Days 10-14 ) Upper Body Bathing Routine Independent Lower Body Bathing Routine Modified Independent with Upper Body Dressing Routine Independent Lower Body Dressing Routine Modified Independent with Toilet Hygeine and Clothing Modified Independent with Management Routine Toilet Transfer Routine Modified Independent with Tub Transfer Routine Modified Independent with Functional Transfers for ADL Modified Independent with Grooming Routine Independent Feeding Routine Independent Social Work: Goals Discharge Plan return home with home care svs and family support Potential for Family Training pt's daughter is involved and attentive Anticipated Discharge Home Destination Discharge With with home care svs and family support PHYSICAL THERAPY: Independent transfers with RW, Independent ambulation 150 feet , Independent 4 stairs with 1 railing and a cane Care Plan: Care Plan ADL's - Improve/Maintain Start: 09/03/16 14:10 Freq: DAILY Status: Active Target: Activity Type Activity Date Activity User E-Sign Co-Sign Detail Recorded Client Recorded Date Recorded By Document 09/03/16 14:10 [id number] [id number] 09/03/16 14:11 [id number] 09/03/16 14:10 [facility] Outcome: ADL's/ADL Transfers Orders/Interventions Occupational Therapy Evaluation & Treatment Communication Tool in Patient Room Device Yes Address Deficits Secondary To: right hip fx s/ p ORIF Patient to receive OT 5x/wk for 60-120 Therex min/day Self Care Management Group Therapy UE/LE ADL's with Assist Yes: Castro ADL Transfers with Assist Yes: Castro Toileting: Transfers,Clothing Management Yes: [place] ,Hygeine w/Assist Progression Toward Outcome/Goals Progressing Outcome/Goals Met Pt with increased c/o pain during therapies this date, nursing aware. Cardiovascular- Improve/Maintain Start: 09/02/16 23:20 Freq: DAILY Status: Active Target: Activity Type Activity Date Activity User E-Sign Co-Sign Detail Recorded Client Recorded Date Recorded By Document 09/04/16 11:08 [id number] [id number] 09/04/16 11:09 [id number] 09/04/16 11:08 PMRU Outcome: Cardiovascular Vital Signs q Shift for 48hrs Then BID Yes Current Cardiovascular Outcome/Goal Maintain/ Achieve Baseline HR, BP , Perfusion Improve HR Within Prescribed Parameters Progression Toward Outcome/Goal Progressing DVT Prophylaxis- Improve/Maintain Start: 09/02/16 23:20 Freq: DAILY Status: Active Target: Activity Type Activity Date Activity User E-Sign Co-Sign Detail Recorded Client Recorded Date Recorded By Document 09/04/16 11:08 [id number] 09/04/16 11:09 [id number] 09/04/16 11:08 PM[facility] Outcome: DVT Prophylaxis Outcome/Goals Remains Free of DVT Complies with DVT Prophylaxis /Treatment Progression Toward Outcome/Goals Progressing Discharge Planning - Improve/Maintain Start: 04/02/17 23:20 Freq: DAILY Status: Active Target: Activity Type Activity Date Activity User E-Sign Co-Sign Detail Recorded Client Recorded Date Recorded By Document 09/04/16 11:08 [id number] [id number] 09/04/16 11:09 [id number] 09/04/16 11:08 PMRU Outcome: Discharge Planning Identify Patient Needs yes Update Patient Family No Outcome/Goals Demonstrates Understanding of Discharge Plan Progression Toward Outcome/Goals Progressing /GI-Improve/Maintain Start: 09/02/16 23:20 Freq: DAILY Status: Active Target: Activity Type Activity Date Activity User E-Sign Co-Sign Detail Recorded Client Recorded Date Recorded By Document 09/04/16 11:08 [id number] 09/04/16 11:09 [id number] 09/04/16 11:08 PMRU Outcome: Genitourinary/ Gastrointestinal Genitourinary- Outcome/Goals Maintain/ Achieve Urinary Continence Maintain/ Achieve Adequate Urinary Output Remain Free of Hospital- Acquired UTI Progression Toward Outcome/Goals - Progressing Mobility- Improve/Maintain Start: 09/02/16 23:20 Freq: DAILY Status: Active Target: Activity Type Activity Date Activity User E-Sign Co-Sign Detail Recorded Client Recorded Date Recorded By Document 09/03/16 14:43 [id number] 09/03/16 14:43 [id number] 09/03/16 14:43 PMRU Outcome: Mobility Physical Therapy Evaluation and Yes Treatment Activity OOB with Assistance Yes WBAT Yes Device Yes Assistance Yes Patient to be seen 5x/wk for 60-120 min/ Therex day for: Mobility Training Gait Training Outcome/Goals Maintain/ Achieve Baseline Mobility Status Demonstrates Proper Use of Assistive Devices Progression Toward Outcome/Goals Progressing Bed Mobility Yes Transfers Yes Gait x ft Yes Up/Down Stairs Yes With HEP Yes Pain/Comfort- Improve/Maintain Start: 09/02/16 23:20 Freq: DAILY Status: Active Target: Activity Type Activity Date Activity User E-Sign Co-Sign Detail Recorded Client Recorded Date Recorded By Document 09/04/16 11:08 [id number] 09/04/16 11:09 [id number] 09/04/16 11:08 PMRU Outcome: Pain/Comfort Outcome/Goals Demonstrates Knowledge and Use of Available Comfort Measures Achieves Acceptable Comfort/Pain Level as Determined by Patient/Condit Other Outcome/Goals [place], ice, tylenol, fleraril all used for pain management Progression Toward Outcome/Goals Progressing Respiratory - Improve/Maintain Start: 09/02/16 23:20 Freq: DAILY Status: Active Target: Activity Type Activity Date Activity User E-Sign Co-Sign Detail Recorded Client Recorded Date Recorded By Document 09/04/16 11:08 [id number] 09/04/16 11:09 [id number] 09/04/16 11:08 PMRU Outcome: Respiratory Does Patient Have a Trach No Outcome/Goals Maintain/ Improve O2 Sat per MD Order Maintain/ Improve Baseline Respiratory Status Maintain/ Improve Activity Tolerance Progression Toward Outcome/Goals Progressing Safety- Improve/Maintain Start: 09/02/16 23:20 Freq: DAILY Status: Active Target: Activity Type Activity Date Activity User E-Sign Co-Sign Detail Recorded Client Recorded Date Recorded By Document 09/04/16 11:08 [id number] 09/04/16 11:09 [id number] 09/04/16 11:08 PMRU Outcome: Safety Outcome/Goals Remain Free of Injury or Harm Cooperates with Safety Measures for Least Restrictive Environment Progression Toward Outcome/Goals Progressing Skin- Improve/Maintain Start: 09/02/16 23:20 Freq: DAILY Status: Active Target: Activity Type Activity Date Activity User E-Sign Co-Sign Detail Recorded Client Recorded Date Recorded By Document 09/04/16 11:08 [id number] 09/04/16 11:09 [id number] 09/04/16 11:08 PMRU Outcome: Skin Skin Risk Level Medium Skin Orders Turn/Position q2hr While in Bed Outcome/Goals Maintain/ Improve Skin Intergrity Free from Decubitus Progression Toward Outcome/Goals Progressing Medicine Note: Length of Stay: 8 days Anticipated Discharge Destination: Home Tentative Discharge Date: 09/12/16 Discharged to: Home
--- NOTE | 2016-09-04 14:53 | RAD ---
Indication: RIGHT hip fracture with cam analysis internal fixation 8 days ago. Pain. Comparison: August 25, 2016. Technique: AP pelvis, AP and lateral views RIGHT hip. Crosstable lateral technique. Report: Gamma nail traverses the comminuted intratrochanteric fracture with gross anatomic alignment. No evidence for component fracture or loosening. Distal IM missy component locking screw at the level of the distal metaphysis of the femur noted. No compelling callus formation or other fracture healing response evident. The RIGHT hip is normally located and remarkable for advanced axial joint space narrowing and marginal osteophytosis. Associated mild loss of femoral head sphericity. Similar arthropathy at the contralateral hip. Diffuse vascular calcifications. Unremarkable soft tissue contours. IMPRESSION: 1. Gross anatomic alignment at the internally fixated comminuted intratrochanteric fracture of the RIGHT hip. No compelling callus formation or other fracture healing response evident at this time. 2. Grade 3 bilateral hip joint osteoarthritis.
[2016-09-04] MEDS: SIMETHICONE 125 MG PO PRN (17:43)
[2016-09-04] MEDS: Calcium Carbonate CHEW TAB* 500 MG (TUMS) PO PRN (21:16)
[2016-09-05] MEDS: HYDROcodone/ACETAMIN 5-325 MG* 1 TAB PO PRN ×5 (02:08→20:26)
[2016-09-05] MEDS: Calcium Carbonate CHEW TAB* 500 MG (TUMS) PO PRN ×2 (02:11→20:43)
[2016-09-05] MEDS: Heparin VIAL(*) 5000 UNITS/ML VIAL (FIVE THOUSAND) SUBCUT SCH ×3 (05:45→20:50)
[2016-09-05] MEDS: LACTASE ENZYME 9000 UNIT PO SCH ×3 (08:02→16:56)
[2016-09-05] MEDS: IPRATROPIUM BROMIDE BOTH NARES SCH ×3 (08:45→20:48)
[2016-09-05] MEDS: Calcium/Vitamin D TAB 250/125* TAB PO SCH ×2 (08:45→16:56)
[2016-09-05] MEDS: guaiFENesin ER TAB 600 MG PO SCH ×2 (08:45→20:28)
[2016-09-05] MEDS: Cetirizine* 10 MG TAB PO SCH (08:45)
[2016-09-05] MEDS: Potassium Chlor TAB* 20 MEQ TAB.ER PO SCH ×2 (08:45→20:29)
[2016-09-05] MEDS: ceFUROXime TAB(*) 250 MG PO SCH ×2 (08:45→20:28)
[2016-09-05] MEDS: Metoprolol Tartrate TAB* 25 MG PO SCH ×3 (08:45→20:27)
[2016-09-05] MEDS: CMC Pantoprazole TAB (NF) 40 MG TAB PO SCH ×2 (08:46→16:56)
[2016-09-05] MEDS: Benzonatate CAP* 100 MG PO SCH ×2 (08:46→20:27)
[2016-09-05 19:02] LABS: Urine Bilirubin 1+ (Negative); Urine Glucose Negative (Negative); Urine Nitrite Negative (Negative)
[2016-09-05] MEDS: SIMETHICONE 125 MG PO PRN (20:46)
[2016-09-05] MEDS: [UNRECOGNIZED DRUG - OTHER] PO SCH (20:51)
[2016-09-06] MEDS: HYDROcodone/ACETAMIN 5-325 MG* 1 TAB PO PRN ×4 (03:18→21:09)
[2016-09-06] MEDS: Heparin VIAL(*) 5000 UNITS/ML VIAL (FIVE THOUSAND) SUBCUT SCH ×3 (06:24→21:05)
[2016-09-06] MEDS: Cetirizine* 10 MG TAB PO SCH (08:59)
[2016-09-06] MEDS: Potassium Chlor TAB* 20 MEQ TAB.ER PO SCH ×2 (08:59→20:14)
[2016-09-06] MEDS: Calcium/Vitamin D TAB 250/125* TAB PO SCH ×2 (08:59→17:14)
[2016-09-06] MEDS: Metoprolol Tartrate TAB* 25 MG PO SCH ×3 (08:59→20:12)
[2016-09-06] MEDS: guaiFENesin ER TAB 600 MG PO SCH ×2 (08:59→20:15)
[2016-09-06] MEDS: [UNRECOGNIZED DRUG - OTHER] PO SCH ×2 (09:00→20:15)
[2016-09-06] MEDS: ceFUROXime TAB(*) 250 MG PO SCH ×2 (09:03→20:12)
[2016-09-06] MEDS: CMC Pantoprazole TAB (NF) 40 MG TAB PO SCH ×2 (09:03→17:15)
[2016-09-06] MEDS: LACTASE ENZYME 9000 UNIT PO SCH ×3 (09:04→17:15)
[2016-09-06] MEDS: Benzonatate CAP* 100 MG PO SCH ×2 (09:05→20:11)
[2016-09-06] MEDS: IPRATROPIUM BROMIDE BOTH NARES SCH ×3 (10:27→20:16)
[2016-09-06] MEDS: LACTASE ENZYME 9000 UNIT PO PRN (17:48)
[2016-09-06] MEDS ORDERED: LACTAID PO ONE (18:00)
[2016-09-06] MEDS: SIMETHICONE 125 MG PO PRN (20:14)
[2016-09-06] MEDS: Hemorrhoidal OINT PR PRN (20:58)
[2016-09-07] MEDS: HYDROcodone/ACETAMIN 5-325 MG* 1 TAB PO PRN ×6 (01:16→21:28)
[2016-09-07] MEDS: SIMETHICONE 125 MG PO PRN ×3 (01:23→19:04)
[2016-09-07] MEDS: Heparin VIAL(*) 5000 UNITS/ML VIAL (FIVE THOUSAND) SUBCUT SCH ×3 (04:56→21:26)
[2016-09-07] MEDS: LACTASE ENZYME 9000 UNIT PO PRN ×3 (08:47→17:13)
[2016-09-07] MEDS: [UNRECOGNIZED DRUG - OTHER] PO SCH ×2 (08:47→20:08)
[2016-09-07] MEDS: Potassium Chlor TAB* 20 MEQ TAB.ER PO SCH ×3 (08:50→20:09)
[2016-09-07] MEDS: Cetirizine* 10 MG TAB PO SCH (08:50)
[2016-09-07] MEDS: Benzonatate CAP* 100 MG PO SCH ×2 (08:50→20:07)
[2016-09-07] MEDS: guaiFENesin ER TAB 600 MG PO SCH ×2 (08:50→20:09)
[2016-09-07] MEDS: Metoprolol Tartrate TAB* 25 MG PO SCH ×3 (08:50→20:09)
[2016-09-07] MEDS: ceFUROXime TAB(*) 250 MG PO SCH ×2 (08:50→20:08)
[2016-09-07] MEDS: CMC Pantoprazole TAB (NF) 40 MG TAB PO SCH ×2 (08:51→17:11)
[2016-09-07] MEDS: Calcium/Vitamin D TAB 250/125* TAB PO SCH ×2 (08:51→17:11)
[2016-09-07] MEDS: IPRATROPIUM BROMIDE BOTH NARES SCH ×3 (08:51→20:09)
[2016-09-07] MEDS: Docusate CAP* 100 MG PO PRN (15:00)
[2016-09-07] MEDS: Cyclobenzaprine TAB* 10 MG PO PRN (21:27)
[2016-09-08] MEDS: Calcium Carbonate CHEW TAB* 500 MG (TUMS) PO PRN (00:17)
[2016-09-08] MEDS: Acetaminophen TAB* 325 MG PO PRN ×2 (00:50→08:28)
[2016-09-08] MEDS: HYDROcodone/ACETAMIN 5-325 MG* 1 TAB PO PRN ×3 (03:03→19:35)
[2016-09-08] MEDS: Heparin VIAL(*) 5000 UNITS/ML VIAL (FIVE THOUSAND) SUBCUT SCH ×3 (05:37→21:00)
[2016-09-08] MEDS: Benzonatate CAP* 100 MG PO SCH ×2 (08:15→21:04)
[2016-09-08] MEDS: Calcium/Vitamin D TAB 250/125* TAB PO SCH (08:15)
[2016-09-08] MEDS: guaiFENesin ER TAB 600 MG PO SCH ×2 (08:16→21:05)
[2016-09-08] MEDS: ceFUROXime TAB(*) 250 MG PO SCH ×2 (08:16→21:04)
[2016-09-08] MEDS: [UNRECOGNIZED DRUG - OTHER] PO SCH ×2 (08:17→21:07)
[2016-09-08] MEDS: Metoprolol Tartrate TAB* 25 MG PO SCH ×3 (08:17→21:05)
[2016-09-08] MEDS: Potassium Chlor TAB* 20 MEQ TAB.ER PO SCH (08:17)
[2016-09-08] MEDS: Cetirizine* 10 MG TAB PO SCH (08:17)
[2016-09-08] MEDS: IPRATROPIUM BROMIDE BOTH NARES SCH ×3 (08:18→21:05)
[2016-09-08] MEDS: CMC Pantoprazole TAB (NF) 40 MG TAB PO SCH ×2 (08:24→17:01)
[2016-09-08] MEDS: LACTASE ENZYME 9000 UNIT PO PRN ×2 (12:18→17:01)
[2016-09-08] MEDS: SIMETHICONE 125 MG PO PRN (16:09)
[2016-09-08] MEDS: Hemorrhoidal OINT PR PRN (18:34)
[2016-09-08] MEDS: Cyclobenzaprine TAB* 10 MG PO PRN (21:02)
[2016-09-08] MEDS: POTASSIUM PO SCH (21:08)
[2016-09-09] MEDS: HYDROcodone/ACETAMIN 5-325 MG* 1 TAB PO PRN ×4 (04:15→23:37)
[2016-09-09] MEDS: Heparin VIAL(*) 5000 UNITS/ML VIAL (FIVE THOUSAND) SUBCUT SCH ×3 (05:32→21:59)
[2016-09-09] MEDS: ceFUROXime TAB(*) 250 MG PO SCH ×2 (08:02→20:05)
[2016-09-09] MEDS: Metoprolol Tartrate TAB* 25 MG PO SCH ×2 (08:02→20:03)
[2016-09-09] MEDS: Benzonatate CAP* 100 MG PO SCH ×2 (08:02→20:06)
[2016-09-09] MEDS: Cetirizine* 10 MG TAB PO SCH (08:02)
[2016-09-09] MEDS: CMC Pantoprazole TAB (NF) 40 MG TAB PO SCH ×2 (08:03→16:55)
[2016-09-09] MEDS: IPRATROPIUM BROMIDE BOTH NARES SCH ×3 (08:03→20:07)
[2016-09-09] MEDS: [UNRECOGNIZED DRUG - OTHER] PO SCH ×2 (08:03→20:05)
[2016-09-09] MEDS: CALCIUM 500 MG PO SCH (08:03)
[2016-09-09] MEDS: guaiFENesin ER TAB 600 MG PO SCH ×2 (08:03→20:03)
[2016-09-09] MEDS: CHOLECALCIFEROL PO SCH (08:03)
[2016-09-09] MEDS: Acetaminophen TAB* 325 MG PO PRN ×2 (11:10→22:03)
[2016-09-09] MEDS: CLOBETASOL 0.05% TOPICAL PRN (12:36)
[2016-09-09] MEDS: LACTASE ENZYME 9000 UNIT PO PRN ×2 (12:36→17:04)
[2016-09-09] MEDS: SIMETHICONE 125 MG PO PRN (16:25)
[2016-09-09] MEDS: Cyclobenzaprine TAB* 10 MG PO PRN (20:02)
[2016-09-09] MEDS: POTASSIUM PO SCH (20:04)
[2016-09-10] MEDS: Heparin VIAL(*) 5000 UNITS/ML VIAL (FIVE THOUSAND) SUBCUT SCH ×3 (05:57→21:37)
[2016-09-10 07:39] LABS: Hematocrit 34 % (35-47); Hemoglobin 11.6 g/dl (12.0-16.0); Mean Corpuscular HGB Conc 34 g/dl (31-36); Mean Corpuscular Hemoglobin 33 pg (27-31); Mean Corpuscular Volume 95 fL (80-97); Mean Platelet Volume 7 um3 (7.4-10.4); Red Blood Count 3.54 10^6/ul (4.0-5.4); Red Cell Distribution Width 15 % (10.5-15); White Blood Count 4.4 10^3/ul (3.5-10.8)
[2016-09-10 07:51] LABS: Albumin 3.2 g/dL (3.2-5.2); EGFR African American 112.4 (>60); EGFR Non-African American 87.4 (>60); Globulin 2.5 g/dL (2-4); Potassium 4.7 mmol/L (3.5-5.0); Total Bilirubin 0.6 mg/dL (0.2-1.0); Total Protein 5.7 g/dL (6.4-8.9)
[2016-09-10] MEDS: Metoprolol Tartrate TAB* 25 MG PO SCH ×2 (08:08→20:18)
[2016-09-10] MEDS: Benzonatate CAP* 100 MG PO SCH ×2 (08:08→20:18)
[2016-09-10] MEDS: CMC Pantoprazole TAB (NF) 40 MG TAB PO SCH ×2 (08:08→16:16)
[2016-09-10] MEDS: ceFUROXime TAB(*) 250 MG PO SCH ×2 (08:09→20:17)
[2016-09-10] MEDS: Cetirizine* 10 MG TAB PO SCH (08:09)
[2016-09-10] MEDS: [UNRECOGNIZED DRUG - OTHER] PO SCH ×2 (08:09→20:19)
[2016-09-10] MEDS: CHOLECALCIFEROL PO SCH (08:09)
[2016-09-10] MEDS: guaiFENesin ER TAB 600 MG PO SCH ×2 (08:09→20:20)
[2016-09-10] MEDS: CALCIUM 500 MG PO SCH (08:09)
[2016-09-10] MEDS: HYDROcodone/ACETAMIN 5-325 MG* 1 TAB PO PRN ×3 (08:10→20:18)
[2016-09-10] MEDS: IPRATROPIUM BROMIDE BOTH NARES SCH ×3 (08:11→20:20)
[2016-09-10] MEDS: Docusate CAP* 100 MG PO PRN (12:06)
[2016-09-10] MEDS: LACTASE ENZYME 9000 UNIT PO PRN (15:52)
[2016-09-10] MEDS: POTASSIUM PO SCH (20:20)
[2016-09-10] MEDS: CLOBETASOL 0.05% TOPICAL PRN (20:25)
[2016-09-10] MEDS: Cyclobenzaprine TAB* 10 MG PO PRN (20:26)
[2016-09-10] MEDS: Acetaminophen TAB* 325 MG PO PRN (23:35)
[2016-09-11] MEDS: HYDROcodone/ACETAMIN 5-325 MG* 1 TAB PO PRN ×4 (01:36→19:52)
[2016-09-11] MEDS: Heparin VIAL(*) 5000 UNITS/ML VIAL (FIVE THOUSAND) SUBCUT SCH ×3 (04:50→21:36)
[2016-09-11] MEDS: Metoprolol Tartrate TAB* 25 MG PO SCH ×2 (10:40→20:17)
[2016-09-11] MEDS: ceFUROXime TAB(*) 250 MG PO SCH ×2 (10:40→20:05)
[2016-09-11] MEDS: Benzonatate CAP* 100 MG PO SCH ×2 (10:41→20:19)
[2016-09-11] MEDS: Cetirizine* 10 MG TAB PO SCH (10:41)
[2016-09-11] MEDS: CMC Pantoprazole TAB (NF) 40 MG TAB PO SCH ×2 (10:41→16:45)
[2016-09-11] MEDS: [UNRECOGNIZED DRUG - OTHER] PO SCH ×2 (10:42→20:17)
[2016-09-11] MEDS: CALCIUM 500 MG PO SCH (10:42)
[2016-09-11] MEDS: CHOLECALCIFEROL PO SCH (10:42)
[2016-09-11] MEDS: IPRATROPIUM BROMIDE BOTH NARES SCH ×3 (10:43→20:17)
[2016-09-11] MEDS: guaiFENesin ER TAB 600 MG PO SCH ×2 (12:14→20:17)
[2016-09-11] MEDS: LACTASE ENZYME 9000 UNIT PO PRN ×2 (12:17→16:49)
[2016-09-11] MEDS: CLOBETASOL 0.05% TOPICAL PRN ×2 (12:19→20:09)
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
[2016-09-11] MEDS: POTASSIUM PO SCH (20:18)
[2016-09-11] MEDS: Cyclobenzaprine TAB* 10 MG PO PRN (23:19)
[2016-09-12] MEDS: HYDROcodone/ACETAMIN 5-325 MG* 1 TAB PO PRN ×2 (01:19→13:06)
[2016-09-12] MEDS: Acetaminophen TAB* 325 MG PO PRN (04:29)
[2016-09-12 06:20] VITALS: BP 110/46
[2016-09-12] MEDS: Heparin VIAL(*) 5000 UNITS/ML VIAL (FIVE THOUSAND) SUBCUT SCH (06:23)
[2016-09-12] MEDS: IPRATROPIUM BROMIDE BOTH NARES SCH (08:48)
[2016-09-12] MEDS: Benzonatate CAP* 100 MG PO SCH (08:49)
[2016-09-12] MEDS: ceFUROXime TAB(*) 250 MG PO SCH (08:49)
[2016-09-12] MEDS: Metoprolol Tartrate TAB* 25 MG PO SCH (08:49)
[2016-09-12] MEDS: Cetirizine* 10 MG TAB PO SCH (08:49)
[2016-09-12] MEDS: [UNRECOGNIZED DRUG - OTHER] PO SCH (08:49)
[2016-09-12] MEDS: guaiFENesin ER TAB 600 MG PO SCH ×2 (08:50→08:54)
[2016-09-12] MEDS: CMC Pantoprazole TAB (NF) 40 MG TAB PO SCH (08:51)
[2016-09-12] MEDS: CALCIUM 500 MG PO SCH (08:52)
[2016-09-12] MEDS: CHOLECALCIFEROL PO SCH (08:52)
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
== END 2016-09-12 13:30 | disposition home health service (06) | DRG 560 ==
LOC: PMRU 10:40 → UNDOADMIN 09-02 11:48 → PMRU 09-02 11:48 → UNDODISIN 09-12 13:30
PROVIDERS: ADMIT Physical Medicine & Rehabilitation; ATTEND Physical Medicine & Rehabilitation
PROC: F07Z5ZZ Bed Mobility Treatment (ICD-10-PCS; principal; 2016-09-02)
PROC: F07Z9ZZ Gait Training/Functional Ambulation Treatment (ICD-10-PCS; 2016-09-02)
PROC: F07Z8ZZ Transfer Training Treatment (ICD-10-PCS; 2016-09-02)
PROC: F08Z0ZZ Bathing/Showering Techniques Treatment (ICD-10-PCS; 2016-09-02)
PROC: F08Z1ZZ Dressing Techniques Treatment (ICD-10-PCS; 2016-09-02)
PROC: F08Z3ZZ Feeding/Eating Treatment (ICD-10-PCS; 2016-09-02)
DX: S72.141D Displaced intertrochanteric fracture of right femur, subsequent encounter for closed fracture with routine healing (principal); K57.92 Diverticulitis of intestine, part unspecified, without perforation or abscess without bleeding; I27.2 Other secondary pulmonary hypertension; N39.0 Urinary tract infection, site not specified; W19.XXXD Unspecified fall, subsequent encounter; R00.0 Tachycardia, unspecified; K21.9 Gastro-esophageal reflux disease without esophagitis; K44.9 Diaphragmatic hernia without obstruction or gangrene; I36.1 Nonrheumatic tricuspid (valve) insufficiency; J40 Bronchitis, not specified as acute or chronic; Z79.1 Long term (current) use of non-steroidal anti-inflammatories (NSAID); Z79.01 Long term (current) use of anticoagulants; Z79.899 Other long term (current) drug therapy; Z88.6 Allergy status to analgesic agent; Z88.8 Allergy status to other drugs, medicaments and biological substances; Z91.048 Other nonmedicinal substance allergy status; Z80.0 Family history of malignant neoplasm of digestive organs; Z82.49 Family history of ischemic heart disease and other diseases of the circulatory system; B96.4 Proteus (mirabilis) (morganii) as the cause of diseases classified elsewhere
CPT/HCPCS: 36415; 71020; 71275; 80053; 81003; 84443; 85025; 85379; 93005; 93306; 94640; 94760; A9270-GY; J1644; Q9967

== ENCOUNTER 2016-08-31 13:20 | Inpatient (IN) | payer MEDICARE, BC ==
[2016-08-31] MEDS ORDERED: Metoprolol Tartrate IV* 1 MG/ML 5 ML VIAL IV ONE (13:45)
[2016-08-31] MEDS ORDERED: Calcium Carbonate CHEW TAB* 500 MG (TUMS) PO PRN (13:52)
[2016-08-31] MEDS ORDERED: Docusate CAP* 100 MG PO PRN (13:52)
[2016-08-31] MEDS ORDERED: Bisacodyl SUPP* 10 MG SUPP PR PRN (13:52)
[2016-08-31] MEDS ORDERED: Albuterol/Ipratropium NEB.SOL* Albuterol 2.5 MG/Ipratropium 0.5 MG 3 ML INH PRN (13:52)
[2016-08-31] MEDS ORDERED: Senna TAB PO PRN (13:52)
[2016-08-31] MEDS ORDERED: guaiFENesin LIQ* 100 MG/5 ML UDC PO PRN (13:52)
[2016-08-31] MEDS ORDERED: Magnesium Hydroxide LIQ* 30 ML UDC PO PRN (13:52)
[2016-08-31] MEDS ORDERED: Lactase Enzyme (NF) 9,000 UNIT TAB PO SCH (16:30)
[2016-08-31] MEDS: IPRATROPIUM BROMIDE BOTH NARES SCH ×2 (16:38→20:52)
[2016-08-31] MEDS: Heparin VIAL(*) 5000 UNITS/ML VIAL (FIVE THOUSAND) SUBCUT SCH ×2 (16:39→20:42)
[2016-08-31] MEDS ORDERED: Furosemide IV* 10 MG/ML 2 ML VIAL (20 MG) IV SLOW PU ONE (16:53)
[2016-08-31] MEDS: Loperamide CAP* 2 MG PO PRN ×2 (17:10→20:49)
[2016-08-31] MEDS: Calcium/Vitamin D TAB 250/125* TAB PO SCH (17:10)
[2016-08-31] MEDS ORDERED: Metoprolol Tartrate TAB* 25 MG PO SCH (20:00)
[2016-08-31] MEDS: Metoprolol Tartrate TAB* 25 MG PO SCH (20:42)
[2016-08-31] MEDS: CMCS: Pantoprazole TAB (NF) 40 MG TAB PO SCH (20:42)
[2016-08-31] MEDS: Benzonatate CAP* 100 MG PO SCH (20:42)
[2016-08-31] MEDS: traMADol TAB* 50 MG PO PRN (20:49)
--- NOTE | 2016-08-31 21:53 | CONS ---
CC: Dr. Worley; Dr. Post CARDIOLOGY CONSULT REPORT: DATE OF CONSULT: 08/31/16 HISTORY OF PRESENT ILLNESS: The patient is an 89-year-old female patient who was hospitalized on August 25 after she sustained a fall and apparently she had a fracture of the right hip; right proximal femur fracture. She had consultation with orthopedist, Dr. Spence. She had surgery on 08/27/16 ORIF of her right hip. She had a history of sinus tachycardia in the past and palpitations and apparently she has been having some tachycardia issues after her surgery. Cardiology consult was further requested. She was as an outpatient on metoprolol 25 mg twice a day. She gives no history of diabetes mellitus, congestive heart failure, coronary artery disease, myocardial infarction or heart attacks, or hypertension in the past. Because of her tachycardia, Cardiology consult was further requested. She does have history of , as mentioned, sinus tachycardia in the past. She also had a history of hiatal hernia, gastroesophageal reflux disease, diverticulitis. Further evaluation by EKG showed her to be in sinus tachycardia. She gives no fever, no chills. There are some issues possibly because of dehydration, mild anemia. No nausea, no vomiting, no hematochezia, no skin rash, no syncope, no swelling in the lower extremities is appreciated. PAST MEDICAL HISTORY: As mentioned above. MEDICATIONS: 1. She is on Lopressor 25 mg daily. 2. Heparin for DVT prophylaxis. 3. She is on Flexeril. 4. She is on calcium plus vitamin D. 5. She is on Protonix as well. ALLERGIES: She has some allergies to ASPIRIN and NIACIN. SOCIAL HISTORY: She has no history of smoking. No drinking. No history of drug abuse. She 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 in a 2-story house. REVIEW OF SYSTEMS: Her review of all other systems essentially is negative. PHYSICAL EXAM: She is elderly but she is not in acute distress. Her heart rate is about 120. She is afebrile. Her blood pressure is about 120/60. Head and Neck Exam: Normocephalic, atraumatic head. Ears, Nose, and Throat: Essentially benign. Neck: Supple. JVD is not elevated. No carotid bruit. No masses in the neck are appreciated. Chest: Clear to auscultation. No rales , no wheeze, and no added sounds appreciated. Heart: Tachycardic. S1, S2. No added sounds, no gallops, no rubs. There is a grade 2/6 systolic murmur in the left sternal border. Abdomen: Benign. Soft. Positive bowel sounds. Extremities: No edema, no cyanosis, no clubbing. Skin: Normal. Psych: Normal affect and mood. SUPPLY ANALYST: No focal deficits appreciated. DIAGNOSTIC STUDIES/LAB DATA: She had an echocardiogram today that showed her EF to be 60% to 65%. It is hyperdynamic. There is mild aortic insufficiency. There is mild aortic stenosis as well. There is probably xsqgjyky-xa-acdfwv tricuspid insufficiency with severe pulmonary hypertension. The labs from today white blood cells 8.7, hemoglobin 10.1, hematocrit 29, and platelets 293. Her D-dimer was more than 1050. Her chemistry: Sodium 133, potassium 3.8, chloride 101, total CO2 27, BUN 21, creatinine 0.58. LFTs are normal. Her TSH is 3.56. Her venous Doppler of the lower extremities showed no right lower extremity deep venous thrombosis. No DVT. Her EKG from the showed her to be in sinus rhythm, sinus tachycardia, possibly Q waves in leads III and aVF consistent with old infarct. Her EKG from today showed possible junctional tachycardia, Q waves in inferior leads . IMPRESSION: The patient is an 89-year-old female patient with: 1. Status post open reduction internal fixation surgery for right hip fracture. 2. History of sinus tachycardia in the past. She was on beta blockers as an outpatient. She does have history of tachycardia after her surgery which could be multifactorial in nature. 3. Hyperdynamic with small left ventricular cavity with an ejection fraction more than 65%. 4. Mild aortic insufficiency. 5. Mild aortic stenosis. 6. Eirsrlvd-ua-grqnfu tricuspid insufficiency. 7. Severe pulmonary hypertension. PLAN: The tachycardia could be multifactorial including dehydration, stress after her surgery, pain going through the surgery, anemia, although it is mild and definitely with elevated D-dimer more than 1000, concerns for pulmonary embolism. I have discussed this at length with Dr. Worley and I understand the hospitalists are seeing the patient and CT scan to rule out PE was ordered. Continue hydration. If needed, beta-yue dose can be increased. Make sure electrolytes including potassium, magnesium, sodium within normal limits. Follow up kidney function very closely and anticoagulation as per the hospitalist for PE treatment if needed. We will follow her closely. I have discussed this with the patient as well as with her daughter who was available at bedside. TIME SPENT: More than half of at least 60-plus minute was [id number] in the education, counseling mode explaining the above plan and future treatment. [id number]/[facility]PS #: [id number] PARMINDER
--- NOTE | 2016-08-31 23:45 | HP ---
MEDICINE HISTORY AND PHYSICAL: DATE OF ADMISSION: 08/31/16 PROVIDER: Dyana Salvador NP PRIMARY CARE PHYSICIAN: Dr. Ruben Chan. ATTENDING PHYSICIAN: Dr. Atiya Brunson *(dictated by Dyana Salvador NP) CHIEF COMPLAINT: Tachycardia. HISTORY OF PRESENT ILLNESS: Ms. Mccollum is an 89-year-old female, who initially presented to the hospital on 08/25/16 after sustaining a fall at home. She was brought in by ambulance and was found to have a right proximal femur fracture. The patient was seen in consultation by Ortho and was taken to the operating room on 08/27/16, where she underwent ORIF of her right hip fracture with intramedullary nail. The patient was also noted upon admission on the to have febrile bronchitis and was treated with azithromycin for full course. Postoperatively, the patient notably had some tachycardia and complaints of palpitation. This is thought to be secondary to hypervolemia. The patient was diuresed with Lasix and given extra metoprolol with resolution of her symptoms. She was discharged to [facility] on 08/30/16. On 08/31/16, it was noted by the [facility] staff that the patient's tachycardia had returned and she was noted to have heart rates in the 100s to 130s. The patient denied chest pain or shortness of breath but does state that she has a persistent cough secondary to her bronchitis. She has intentionally been trying to cough to loosen the congestion in her chest. In [facility], an echocardiogram was ordered as well as an EKG, which showed the patient is in junctional tachycardia rhythm. An echocardiogram showed the patient has severe pulmonary hypertension as well as tyzo-ad-zwamqxyp mitral regurgitation and dezdshyv-pd-uxoliv tricuspid regurgitation. A CTA was also done, no PE was seen. The patient was found to have small bilateral pleural effusion. Venous Doppler study was negative for DVT in her right extremity. PAST MEDICAL HISTORY: 1. Status post ORIF of the right hip. 2. Recent bronchitis. 3. History of sinus tachycardia. 4. Hiatal hernia. 5. GERD. 6. History of diverticulitis. MEDICATIONS WHILE IN [facility]: 1. Tramadol 50 mg q.6 hours p.r.n. 2. Robitussin 5 mL daily and 5 mL q.6 hours p.r.n. 3. Senna 2 tabs at bedtime p.r.n. 4. Protonix 40 mg b.i.d. 5. Osteo Bi-Flex 1 tab daily. 6. Lopressor 25 mg at 12 o'clock and 8 o'clock p.m. 7. Milk of magnesia 30 mL q.6 hours p.r.n. 8. Claritin 10 mg daily. 9. Loperamide 2 mg daily p.r.n. 10. Lactase 9000 units with meals. 11. Ipratropium nasal spray, 2 sprays both nares t.i.d. 12. Simethicone 125 mg q.4 hours. 13. Colace 100 mg b.i.d. p.r.n. 14. Flexeril 5 mg b.i.d. p.r.n. 15. Cranberry supplement 400 mg daily. 16. Os-Aj D 1 tab b.i.d. 17. Calcium carbonate chews 500 mg q.4 hours p.r.n. 18. Dulcolax suppository 10 mg per rectum daily p.r.n. 19. Tessalon Perles 100 mg b.i.d. 20. DuoNeb nebulizer treatment 1 neb inhaled q.6 hours p.r.n. 21. Tylenol 650 mg q.6 hours p.r.n. ALLERGIES: Include ASPIRIN, NIACIN, and ADHESIVE TAPE. FAMILY HISTORY: The patient reports her father with history of heart issues and a brother who had intestinal cancer. SOCIAL HISTORY: The patient denies any tobacco, alcohol, or recreational drug use. She was previously living with her daughter. She is a retired nurse. Her surrogate decision maker is her daughter, Ally. REVIEW OF SYSTEMS: A 14-point review of systems was completed, all pertinent positives and negatives are included in the HPI, all those not mentioned are negative. PHYSICAL EXAMINATION GENERAL: Ms. Mccollum is an 89-year-old female who is out of bed to chair, in no acute distress. VITAL SIGNS: Temperature 98.3, pulse rate 102, respiratory rate 15, blood pressure 118/46, O2 saturation 93% on room air. HEENT: Head is atraumatic, normocephalic. Face is symmetrical. Pupils are equal, round, and reactive to light. External ears and nose are normal. Oral mucosa appears moist. NECK: Supple. No lymphadenopathy noted. RESPIRATORY: Coarse breath sounds with fair aeration through all lung stewart. Mild crackles in the bases. No accessory muscle use. CARDIAC: S1, S2 heart sounds. Rate is tachycardic but regular. No JVD noted. There is no peripheral edema. Distal pulses are 1+ bilaterally. Cap refill is less than 3 seconds. ABDOMEN: Soft, nontender, nondistended. Bowel sounds are present in all 4 quadrants. MUSCULOSKELETAL: The patient is able to move all extremities. Limited range of motion to the right lower extremity. NEURO: The patient is able to move all extremities. Cranial nerves II through XII are grossly intact. The patient follows commands. PSYCH: She is alert and oriented x3. Her affect is appropriate. SKIN: Limited assessment, appears grossly intact. DIAGNOSTIC STUDIES/LAB DATA: CBC: WBC 8.7, hemoglobin 10.1, hematocrit 29, platelet count 293. D-dimer greater than 1050. CMP: Sodium 133, potassium 3.8 , chloride 101, carbon dioxide 27, BUN 21, creatinine 0.58, glucose 97, calcium 8.9. Total bili 0.7, AST 16, ALT 9, alk phos 55. Albumin 2.6. TSH is 3.56. EKG today shows junctional tachycardia. Venous Doppler study of the right lower extremity is negative for deep vein thrombosis. CTA of the chest, impression: 1. No pulmonary arterial filling defect to suggest pulmonary embolism. 2. Large paraesophageal hiatal hernia with associated compressive atelectasis of left lower lobe. 3. Small bilateral pleural effusions. Chest x-ray, impression: Constellation of findings is most consistent with near complete resolution of pulmonary vascular congestion and interstitial edema compared with August 25 exam. Small pleural effusions are new. She has large hiatal hernia with associated right basilar atelectasis. Old medical records were reviewed. ASSESSMENT AND PLAN: Ms. Mccollum is an 89-year-old female who was a patient of [facility], status post open reduction internal fixation of right hip fracture who now presents with concern for tachycardia. We will admit her to the telemetry floor for further observation and treatment of her tachycardia. Plan is as follows: 1. Tachycardia. The patient's CTA is negative for pulmonary embolism. The patient denies any chest pain or increased dyspnea. She is not requiring any oxygen. She does report that she feels her heart is racing after she coughs, and she does intentionally try to cough in order to clear her secretions. I do plan to give her one-time dose of IV Lopressor and increase her metoprolol 3 times a day for better control of her tachycardia. Additionally, she does appear to be mildly congested in the lungs. We will give her a one-time dose of Lasix today and recheck her tomorrow. I will also monitor her overnight, obtain daily weights, and monitor her output following the Lasix. The patient is afebrile and does not demonstrate a leukocytosis. She is recovering from the bronchitis, may just be stress mediated as well as related to the patient's coughing. However, we will try to see if we can obtain better control with adjusting her medications. 2. Status post open reduction internal fixation right hip. I have reordered PT and OT. We will continue pain control with p.r.n. Tylenol and tramadol. We will discharge her back to [facility] when medically stable. 3. Recent bronchitis. Continue supportive care with Tessalon Perles and guaifenesin. There are no increased oxygen needs and the patient has been afebrile. 4. History of gastroesophageal reflux disease. Continue PPI. 5. FEN. The patient is ordered regular, low-sodium diet. 6. DVT prophylaxis. She is ordered subcu heparin as she is highest risk, also scored 11 on DVT risk assessment. 7. Code status. The patient wishes to be a DNR per her MOLST form. 8. Disposition. Discharge to [facility] when medically stable. TIME SPENT: Time spent on this admission was approximately 60 minutes, more than half the time was spent [id number] with the patient obtaining history and physical, performing physical examination, and reviewing the plan of care. Plan of care was also reviewed with my attending, Dr. Brunson, who is in agreement. DYANA SALVADOR NP CC: Dr. Chan* [id number]/[facility] #: [id number] MTDKhoi
[2016-09-01] MEDS: Acetaminophen TAB* 325 MG PO PRN ×2 (01:03→14:28)
[2016-09-01] MEDS ORDERED: SIMETHICONE 125 MG PO PRN (04:39)
[2016-09-01] MEDS: Heparin VIAL(*) 5000 UNITS/ML VIAL (FIVE THOUSAND) SUBCUT SCH ×3 (05:55→20:54)
[2016-09-01 06:06] LABS: Hematocrit 29 % (35-47); Hemoglobin 9.9 g/dl (12.0-16.0); Mean Corpuscular HGB Conc 34 g/dl (31-36); Mean Corpuscular Hemoglobin 32 pg (27-31); Mean Corpuscular Volume 93 fL (80-97); Mean Platelet Volume 7 um3 (7.4-10.4); Red Blood Count 3.12 10^6/ul (4.0-5.4); Red Cell Distribution Width 13 % (10.5-15); White Blood Count 11.1 10^3/ul (3.5-10.8)
[2016-09-01 06:19] LABS: BUN/Creatinine Ratio 27.3 (8-20); Calcium 8.6 mg/dL (8.6-10.3); EGFR African American 108.4 (>60); EGFR Non-African American 84.3 (>60); Potassium 3.7 mmol/L (3.5-5.0)
[2016-09-01 08:11] LABS: Urine Bacteria 1+ (Absent); Urine Bilirubin Negative (Negative); Urine Glucose Negative (Negative); Urine Nitrite Positive (Negative)
[2016-09-01] MEDS: Benzonatate CAP* 100 MG PO SCH ×2 (09:32→20:53)
[2016-09-01] MEDS: Calcium/Vitamin D TAB 250/125* TAB PO SCH ×2 (09:32→16:34)
--- NOTE | 2016-09-01 09:32 | PN ---
Subjective Date of Service: 09/01/16 Interval History: Patient seen and examined at bedside. Ms. Mccollum is sitting up in bed, finishing breakfast. She reports that she was up multiple times urinating overnight but denies any further stools. She denies fever/chills, CP, SOB, abd pain, n/v. The palpitations she c/o yesterday were better. She is still trying to cough and clear the congestion in her chest. She has a history of sinus tachycardia; she has been on beta blockers BID but report that she gets sleepy from it. We did discuss the need to increase it to TID for the time being, as she has had issues with persistent tachycardia sustained in the 130s and higher. She and her daughter are in agreement with this. Family History: Unchanged from Admission Social History: Unchanged from Admission Past Medical History: Unchanged from Admission Objective Active Medications: Acetaminophen (Tylenol Tab*) 650 mg PO Q6H PRN PRN Reason: FEVER/PAIN Last Admin: 09/01/16 01:03 Dose: 650 mg Albuterol/Ipratropium (Duoneb (Albuterol 2.5 Mg/Ipratropium 0.5 Mg)) 1 neb INH Q6H PRN PRN Reason: SOB/WHEEZING Benzonatate (Tessalon Cap*) 100 mg PO BID [facility] Last Admin: 08/31/16 20:42 Dose: 100 mg Bisacodyl (Dulcolax Supp*) 10 mg [place] DAILY PRN PRN Reason: CONSTIPATION Calcium Carbonate (Tums*) 500 mg PO Q4H PRN PRN Reason: DYSPEPSIA Calcium/Vitamin D (Oscal D Tab 250/125*) 1 tab PO 0800,1700 [facility] Last Admin: 08/31/16 17:10 Dose: 1 tab Cetirizine HCl (Zyrtec*) 10 mg PO DAILY [place] PRN Reason: Protocol Cyclobenzaprine HCl (Flexeril Tab*) 5 mg PO BID PRN PRN Reason: SPASMS Docusate Sodium (Colace Cap*) 100 mg PO BID PRN PRN Reason: CONSTIPATION Guaifenesin (Robitussin*) 5 ml PO DAILY [place] Guaifenesin (Robitussin*) 5 ml PO Q6H PRN PRN Reason: COUGH Last Admin: 08/31/16 22:14 Dose: 5 ml Heparin Sodium (Porcine) (Heparin Vial(*)) 5,000 units SUBCUT Q8HR [facility] Last Admin: 09/01/16 05:55 Dose: 5,000 units Ceftriaxone Sodium 1,000 mg/ (Sodium Chloride) 50 mls @ 200 mls/hr IVPB Q24H [facility] Lactase (Lactaid Fast Act) 9,000 unit PO AC [facility] Loperamide HCl (Imodium Cap*) 2 mg PO .SEE DIRECTIONS PRN PRN Reason: DIARRHEA Last Admin: 08/31/16 20:49 Dose: 2 mg Magnesium Hydroxide (Milk Of [place]ha Liq*) 30 ml PO Q6H PRN PRN Reason: CONSTIPATION Metoprolol Tartrate (Lopressor Tab*) 25 mg PO TID [facility] Last Admin: 08/31/16 20:42 Dose: 25 mg Pto: Ipratropium [place] Nasal [place] 0.06% 2 spray BOTH NARES TID [facility] Pto: Simethicone (125mg Tabs) 1 dose PO Q4H PRN PRN Reason: GAS Non-Formulary Medication (Gas Relief Extra Strength) 125 mg PO Q4HR [facility] Pantoprazole Sodium (Protonix Tab (Nf)) 40 mg PO BID [facility] Last Admin: 08/31/16 20:42 Dose: 40 mg Senna (Senokot Tab*) 2 tab PO BEDTIME PRN PRN Reason: CONSTIPATION Tramadol HCl (Ultram*) 50 mg PO Q6HR PRN PRN Reason: PAIN Last Admin: 08/31/16 20:49 Dose: 50 mg Vital Signs 08/31/16 08/31/16 08/31/16 17:10 17:41 19:10 Temperature 98.3 F Pulse Rate 102 Respiratory 18 16 17 Rate Blood Pressure 118/46 (mmHg) O2 Sat by Pulse 93 Oximetry 08/31/16 08/31/16 08/31/16 19:48 20:00 20:49 Temperature 98.3 F Pulse Rate 103 Respiratory 16 17 18 Rate Blood Pressure 114/70 (mmHg) O2 Sat by Pulse 95 Oximetry 08/31/16 08/31/16 09/01/16 22:31 22:49 04:06 Temperature 99.1 F 97.8 F Pulse Rate 103 91 Respiratory 16 16 16 Rate Blood Pressure 127/61 109/54 (mmHg) O2 Sat by Pulse 94 95 Oximetry 09/01/16 07:55 Temperature 98.2 F Pulse Rate 94 Respiratory 22 Rate Blood Pressure 117/52 (mmHg) O2 Sat by Pulse 94 Oximetry Oxygen Devices in Use Now: None Appearance: Elderly female, sitting up in bed, in NAD Eyes: PERRLA Ears/Nose/Mouth/Throat: Mucous Membranes Moist Neck: NL Appearance and Movements; NL JVP Respiratory: Symmetrical Chest Expansion and Respiratory Effort, Clear to Auscultation Cardiovascular: NL Sounds; No Murmurs; No JVD, RRR - mildly tachycardic Abdominal: NL Sounds; No Tenderness; No Distention Extremities: No Edema Skin: No Rash or Ulcers Neurological: Alert and Oriented x 3 Lines/Tubes/Other Access: Clean, Dry and Intact Peripheral IV Nutrition: Taking PO's Result Diagrams: 09/01/16 05:55 09/01/16 05:55 Assess/Plan/Problems-Billing Assessment: Ms. Mccollum is an 89 yo female with a PMH of recent ORIF of right hip, recent bronchitis, sinus tachycardia, hiatal hernia, and GERD who was transferred from [facility] to telemetry with concern for tachycardia on 08/31/16. - Patient Problems (1) UTI (urinary tract infection) Comment: C/o urinary frequency WBC elevated, UA with positive nitrates, bacteria, leukocyte esterase In the presence of worsening tachycardia Start ceftriaxone, await urine culture (2) Sinus tachycardia Code(s): R00.0 - TACHYCARDIA, UNSPECIFIED Comment: With sustained tachycardia in 130s and above on PMRU Given IV metoprolol x 1 and PO metoprolol increased to TID Better controlled today, HR 90s-100s Patient with UTI, which may be contributing, will treat with ceftriaxone. EKG on PMRU showed junctional tachycardia, now sinus rhythm on telemetry. CTA negative for PE, doppler negative for DVT Mild to severe tricuspid regurgitation and severe pulmonary HTN noted on echo. Received one time dose furosemide for small bilateral pleural effusions and lung crackles. (3) Hip fracture, right Code(s): S72.001A - FRACTURE OF UNSP PART OF NECK OF RIGHT FEMUR, INIT Comment : Was discharged to [facility] 08/30 Plan to return to PM once medically stable PT/OT (4) Bronchitis Code(s): J40 - BRONCHITIS, NOT SPECIFIED ACUTE OR CHRONIC Comment: Improved, blood cx negative Continue guaifenesin, anti-tussives, finished azithromycin course Influenza negative (5) GERD (gastroesophageal reflux disease) Code(s): K21.9 - GASTRO-ESOPHAGEAL REFLUX DISEASE WITHOUT ESOPHAGITIS Comment : Asymptomatic. Continue pantoprazole. (6) DVT prophylaxis Code(s): [id number] - Comment: Continue heparin SQ. (7) DNR (do not resuscitate) Status and Disposition: Inpatient admission. D/c to PMRU when medically stable.
[2016-09-01] MEDS: guaiFENesin LIQ* 100 MG/5 ML UDC PO SCH (09:33)
[2016-09-01] MEDS: Cetirizine* 10 MG TAB PO SCH (09:33)
[2016-09-01] MEDS: IPRATROPIUM BROMIDE 0.06% BOTH NARES SCH ×3 (09:34→20:54)
[2016-09-01] MEDS: CMCS: Pantoprazole TAB (NF) 40 MG TAB PO SCH ×2 (09:35→20:53)
[2016-09-01] MEDS: Metoprolol Tartrate TAB* 25 MG PO SCH ×3 (09:35→20:53)
[2016-09-01] MEDS: cefTRIAXone VIAL(*) 1,000 MG in NS 0.9% 50 ML* 50 ML IVPB SCH (11:01)
[2016-09-01] MEDS: LACTASE ENZYME 9000 UNIT PO SCH ×3 (11:05→14:30)
[2016-09-01 11:06] LABS: Magnesium 1.5 mg/dL (1.9-2.7)
[2016-09-01] MEDS: [UNRECOGNIZED DRUG - OTHER] PO SCH ×2 (11:09→12:36)
[2016-09-01] MEDS: Potassium Chlor TAB* 20 MEQ TAB.ER PO SCH ×2 (11:39→20:53)
[2016-09-01] MEDS: traMADol TAB* 50 MG PO PRN (12:40)
[2016-09-01] MEDS ORDERED: Magnesium Sulf 4 GM/100 ML IV* 4,000 MG/100 ML BAG IVPB ONE (15:16)
[2016-09-01] MEDS ORDERED: predniSONE TAB* 20 MG PO ONE (16:16)
[2016-09-01] MEDS: Levalbuterol 1.25MG/0.5ML NEB INH PRN ×2 (16:37→21:51)
[2016-09-01] MEDS: HYDROcodone/ACETAMIN 5-325 MG* 1 TAB PO PRN (20:53)
[2016-09-01] MEDS: Cyclobenzaprine TAB* 10 MG PO PRN (22:46)
[2016-09-02] MEDS: HYDROcodone/ACETAMIN 5-325 MG* 1 TAB PO PRN ×2 (01:47→09:23)
[2016-09-02] MEDS: Levalbuterol 1.25MG/0.5ML NEB INH PRN (01:56)
[2016-09-02 05:03] LABS: Add Diff/Slide Review? Slide Review Added; Comments Flag Yes; Hematocrit 28 % (35-47); Hemoglobin 9.3 g/dl (12.0-16.0); Mean Corpuscular HGB Conc 33 g/dl (31-36); Mean Corpuscular Hemoglobin 31 pg (27-31); Mean Corpuscular Volume 94 fL (80-97); Mean Platelet Volume 7 um3 (7.4-10.4); Red Blood Count 2.95 10^6/ul (4.0-5.4); Red Cell Distribution Width 13 % (10.5-15); White Blood Count 8.7 10^3/ul (3.5-10.8)
[2016-09-02 05:15] LABS: BUN/Creatinine Ratio 28.6 (8-20); Calcium 8.2 mg/dL (8.6-10.3); EGFR African American 152.9 (>60); EGFR Non-African American 118.9 (>60); Magnesium 2.2 mg/dL (1.9-2.7); Potassium 4.3 mmol/L (3.5-5.0)
[2016-09-02] MEDS: Heparin VIAL(*) 5000 UNITS/ML VIAL (FIVE THOUSAND) SUBCUT SCH (06:05)
--- NOTE | 2016-09-02 09:10 | PN ---
Subjective Date of Service: 09/02/16 Interval History: Ms. Mccollum is OOB to chair. She reports feeling a little more achy in the right leg today after laying and sitting in bed overnight. She reports improvement in her cough and chest congestion. Denies CP, SOB, abd pain, n/v. No further episodes of diarrhea. Daughter at bedside. Patient apparently able to produce sputum sample overnight and daughter requested that it be cultured. No other concerns. Pt and family eager to go back to [facility]. Telemetry: SR 70s-80s with occasional PVCs Family History: Unchanged from Admission Social History: Unchanged from Admission Past Medical History: Unchanged from Admission Objective Active Medications: Acetaminophen (Tylenol Tab*) 650 mg PO Q6H PRN PRN Reason: FEVER/PAIN Last Admin: 09/01/16 14:28 Dose: 650 mg Hydrocodone Bitart/Acetaminophen ([place] 5-325 Tab*) 1 tab PO Q4H PRN PRN Reason: PAIN Last Admin: 09/02/16 01:47 Dose: 1 tab Benzonatate (Tessalon Cap*) 100 mg PO BID [facility] Last Admin: 09/01/16 20:53 Dose: 100 mg Bisacodyl (Dulcolax Supp*) 10 mg [place] DAILY PRN PRN Reason: CONSTIPATION Calcium Carbonate (Tums*) 500 mg PO Q4H PRN PRN Reason: DYSPEPSIA Calcium/Vitamin D (Oscal D Tab 250/125*) 1 tab PO 0800,1700 [facility] Last Admin: 09/01/16 16:34 Dose: 1 tab Cetirizine HCl (Zyrtec*) 10 mg PO DAILY [facility] PRN Reason: Protocol Last Admin: 09/01/16 09:33 Dose: 10 mg Cyclobenzaprine HCl (Flexeril Tab*) 5 mg PO BID PRN PRN Reason: SPASMS Last Admin: 09/01/16 22:46 Dose: 5 mg Docusate Sodium (Colace Cap*) 100 mg PO BID PRN PRN Reason: CONSTIPATION Guaifenesin (Robitussin*) 5 ml PO DAILY [facility] Last Admin: 09/01/16 09:33 Dose: 5 ml Guaifenesin (Robitussin*) 5 ml PO Q6H PRN PRN Reason: COUGH Last Admin: 08/31/16 22:14 Dose: 5 ml Heparin Sodium (Porcine) (Heparin Vial(*)) 5,000 units SUBCUT Q8HR [facility] Last Admin: 09/02/16 06:05 Dose: 5,000 units Ceftriaxone Sodium 1,000 mg/ (Sodium Chloride) 50 mls @ 200 mls/hr IVPB Q24H [facility] Last Admin: 09/01/16 11:01 Dose: 200 mls/hr Lactase (Lactaid Fast Act) 9,000 unit PO AC [facility] Last Admin: 09/01/16 14:30 Dose: 9,000 unit Levalbuterol HCl (Xopenex 1.25 Mg/0.5 Ml Neb.[place]*) 1.25 mg INH Q2H PRN PRN Reason: SOB/WHEEZING Last Admin: 09/02/16 01:56 Dose: 1.25 mg Loperamide HCl (Imodium Cap*) 2 mg PO .SEE DIRECTIONS PRN PRN Reason: DIARRHEA Last Admin: 08/31/16 20:49 Dose: 2 mg Magnesium Hydroxide (Milk Of Magnesia Liq*) 30 ml PO Q6H PRN PRN Reason: CONSTIPATION Metoprolol Tartrate (Lopressor Tab*) 25 mg PO TID [facility] Last Admin: 09/01/16 20:53 Dose: 25 mg Pto: Ipratropium [place] Nasal [place] 0.06% 2 spray BOTH NARES TID [facility] Last Admin: 09/01/16 20:54 Dose: Not Given Pto: Simethicone (125mg Tabs) 1 dose PO Q4H PRN PRN Reason: GAS Pantoprazole Sodium (Protonix Tab (Nf)) 40 mg PO BID [facility] Last Admin: 09/01/16 20:53 Dose: 40 mg Potassium Chloride (Klor Con Er Tab*) 20 meq PO BID [facility] Last Admin: 09/01/16 20:53 Dose: 20 meq Senna (Senokot Tab*) 2 tab PO BEDTIME PRN PRN Reason: CONSTIPATION Tramadol HCl (Ultram*) 50 mg PO Q6HR PRN PRN Reason: PAIN Last Admin: 09/01/16 12:40 Dose: 50 mg Vital Signs 09/01/16 09/01/16 09/01/16 10:58 12:40 14:40 Temperature 98.9 F Pulse Rate 93 Respiratory 22 17 20 Rate Blood Pressure 120/60 (mmHg) O2 Sat by Pulse 95 Oximetry 09/01/16 09/01/16 09/01/16 15:16 19:56 20:00 Temperature 98.4 F 98.2 F Pulse Rate 101 81 Respiratory 16 17 17 Rate Blood Pressure 121/63 121/56 (mmHg) O2 Sat by Pulse 96 93 Oximetry 09/01/16 09/01/16 09/01/16 20:53 22:17 22:46 Temperature Pulse Rate 79 Respiratory 17 18 17 Rate Blood Pressure (mmHg) O2 Sat by Pulse 96 Oximetry 09/01/16 09/01/16 09/02/16 22:53 23:41 00:46 Temperature 98.0 F Pulse Rate 84 Respiratory 16 16 16 Rate Blood Pressure 140/65 (mmHg) O2 Sat by Pulse 93 Oximetry 09/02/16 09/02/16 09/02/16 01:47 02:17 03:05 Temperature 98.0 F Pulse Rate 78 88 Respiratory 18 16 16 Rate Blood Pressure 129/64 (mmHg) O2 Sat by Pulse 97 92 Oximetry 09/02/16 09/02/16 09/02/16 03:47 07:19 07:34 Temperature 97.8 F Pulse Rate 83 Respiratory 15 18 16 Rate Blood Pressure 131/59 (mmHg) O2 Sat by Pulse 95 Oximetry Oxygen Devices in Use Now: None Appearance: Elderly female, OOB to chair, in NAD Eyes: PERRLA Ears/Nose/Mouth/Throat: Clear Oropharnyx, Mucous Membranes Moist Neck: NL Appearance and Movements; NL JVP Respiratory: Symmetrical Chest Expansion and Respiratory Effort, Clear to Auscultation Cardiovascular: NL Sounds; No Murmurs; No JVD, RRR Abdominal: NL Sounds; No Tenderness; No Distention Extremities: No Edema, - - right hip incision c/d/i, well approximated, no redness, distally nvi Skin: No Rash or Ulcers Neurological: Alert and Oriented x 3 Lines/Tubes/Other Access: Clean, Dry and Intact Peripheral IV Nutrition: Taking PO's Result Diagrams: 09/02/16 04:50 09/02/16 04:50 Assess/Plan/Problems-Billing Assessment: Ms. Mccollum is an 89 yo female with a PMH of recent ORIF of right hip, recent bronchitis, sinus tachycardia, hiatal hernia, and GERD who was transferred from [facility] to telemetry with concern for tachycardia on 08/31/16. - Patient Problems (1) UTI (urinary tract infection) Comment: Leukocytosis improved, urine cx pending UA with positive nitrates, bacteria, leukocyte esterase Continue ceftriaxone, will switch to ceftin when transferred to [facility] (2) Sinus tachycardia Code(s): R00.0 - TACHYCARDIA, UNSPECIFIED Comment: With sustained tachycardia in 130s and above on PMRU Now controlled in 70s-80s Continue metoprolol TID with hold parameters Patient with UTI, likely contributed to presentation, being treated with abx EKG on PMRU showed junctional tachycardia, now sinus rhythm on telemetry. CTA negative for PE, doppler negative for DVT Mild to severe tricuspid regurgitation and severe pulmonary HTN noted on echo. (3) Hip fracture, right Code(s): S72.001A - FRACTURE OF UNSP PART OF NECK OF RIGHT FEMUR, INIT Comment : Was discharged to [facility] 08/30 Plan to return to [facility] once medically stable PT/OT (4) Bronchitis Code(s): J40 - BRONCHITIS, NOT SPECIFIED ACUTE OR CHRONIC Comment: Improved, blood cx negative Continue guaifenesin, anti-tussives, finished azithromycin course Influenza negative Continue prn nebulizers Patient received one time dose prednisone (5) GERD (gastroesophageal reflux disease) Code(s): K21.9 - GASTRO-ESOPHAGEAL REFLUX DISEASE WITHOUT ESOPHAGITIS Comment : Asymptomatic. Continue pantoprazole. (6) DVT prophylaxis Code(s): [id number] - Comment: Continue heparin SQ. (7) DNR (do not resuscitate) Status and Disposition: Inpatient admission. D/c to [facility].
[2016-09-02] MEDS: Benzonatate CAP* 100 MG PO SCH (09:21)
[2016-09-02] MEDS: Calcium/Vitamin D TAB 250/125* TAB PO SCH (09:21)
[2016-09-02] MEDS: Potassium Chlor TAB* 20 MEQ TAB.ER PO SCH (09:21)
[2016-09-02] MEDS: Cetirizine* 10 MG TAB PO SCH (09:21)
[2016-09-02] MEDS: guaiFENesin LIQ* 100 MG/5 ML UDC PO SCH (09:22)
[2016-09-02] MEDS: CMCS: Pantoprazole TAB (NF) 40 MG TAB PO SCH (09:22)
[2016-09-02] MEDS: Metoprolol Tartrate TAB* 25 MG PO SCH (09:22)
[2016-09-02] MEDS: IPRATROPIUM BROMIDE 0.06% BOTH NARES SCH (09:23)
[2016-09-02] MEDS: Cyclobenzaprine TAB* 10 MG PO PRN (09:39)
[2016-09-02] MEDS: LACTASE ENZYME 9000 UNIT PO SCH (09:39)
[2016-09-02] MEDS: cefTRIAXone VIAL(*) 1,000 MG in NS 0.9% 50 ML* 50 ML IVPB SCH (10:05)
[2016-09-02 11:20] VITALS: BP 113/53
[2016-09-02] MEDS: traMADol TAB* 50 MG PO PRN (11:39)
--- NOTE | 2016-09-03 05:42 | DS ---
DISCHARGE SUMMARY: DATE OF ADMISSION: 08/31/16 DATE OF DISCHARGE: 09/02/16 PRIMARY CARE PHYSICIAN: Ruben Chan MD. PROVIDER: Dyana aSlvador NP. ATTENDING PHYSICIAN: Tricia Ritter MD *(as dictated by Dyana Salvador NP ) CONSULTING PHYSICIAN: Ken Post MD. PRIMARY DISCHARGE DIAGNOSES: 1. Tachycardia. 2. Urinary tract infection. 3. Status post open reduction internal fixation of right hip. 4. Recent bronchitis. SECONDARY DISCHARGE DIAGNOSES: 1. History of sinus tachycardia. 2. Hiatal hernia. 3. Gastroesophageal reflux disease. 4. History of diverticulitis. INPATIENT MEDICATIONS: 1. Tylenol 650 mg q. 6 hours. 2. Tessalon Perles 100 mg b.i.d. 3. Dulcolax suppository 10 mg per rectum daily p.r.n. 4. Tums 500 mg q. 4 hours p.r.n. 5. Os-Aj D 1 tab b.i.d. 6. Ceftriaxone 1000 mg q. 24 hours. 7. Cetirizine 10 mg daily. 8. Flexeril 5 mg b.i.d. p.r.n. 9. Colace 100 mg b.i.d. p.r.n. 10. Guaifenesin 5 mL daily and 5 mL q. 6 hours p.r.n. 11. Subcu heparin 5000 units q. 8 hours. 12. [place] 5/325 mg 1 tab q. 4 hours p.r.n. 13. Lactase 9000 units with meals. 14. Xopenex 1.25 mg inhaled q. 2 hours p.r.n. 15. Imodium 2 mg p.r.n. per protocol. 16. Milk of magnesia 30 mL q. 6 hours p.r.n. 17. Metoprolol tartrate 25 mg t.i.d., this is at increasing frequency. 18. Pantoprazole 40 mg b.i.d. 19. Potassium chloride 20 mEq b.i.d. 20. Ipratropium nasal spray 2 sprays to both nares t.i.d. 21. Simethicone 125 mg 1 dose q. 4 hours p.r.n. 22. Senna 2 tabs at bedtime p.r.n. 23. Tramadol 50 mg q. 6 hours p.r.n. HOSPITAL COURSE OF STAY: For full details, please refer to the full medical record. In summary, Ms. Mccollum is an 89-year-old female who was admitted on 08/25 after sustaining a fall at home and was found to have a right proximal femur fracture. She was taken to the OR on 08/27/16, where she underwent an ORIF of her right hip fracture with an intramedullary nail. She was also noted upon admission to have febrile bronchitis, which was treated with azithromycin for a full course. The patient was discharged to [facility] on 08/30/16. Prior to her discharge to the [facility], there was some noted tachycardia and complaints of palpitations that was thought to be secondary likely to hypervolemia. The patient was in [facility], but on 08/31/16, the [facility] staff noted that the patient's tachycardia had returned and she was noted to have heart rates in the 100 to 130s and spiking as high as the 170s. During this time, the patient denied chest pain or shortness of breath, but did state that she has a persistent cough. Cardiology was consulted in [facility]. The patient did have an echocardiogram as well as a CTA. The echocardiogram showed the patient has severe pulmonary hypertension as well as [id number] mitral regurgitation and [id number] tricuspid regurgitation. CTA was negative for PE. The patient was admitted to the telemetry floor for further monitoring. She had no increased O2 needs. She did receive a one-time dose of Lopressor with good effect and an increase of her p.o. metoprolol to t.i.d., which she has responded well to. During my assessment, the patient did note that she has had increased urinary frequency and a urine specimen shows that she has concern for positive UA, which shows positive nitrites, leukocyte esterase, wbc's and bacteria. We started her on ceftriaxone. With the treatment of her UTI and change in her medications, the patient's heart rate has been well controlled in the 70s to 80s, and she denies any further palpitations or issues. She is still coughing and she is bringing up sputum. We have switched her albuterol to Xopenex in order to help prevent some of the tachycardic side effects of the albuterol. She has responded well to this. She did also receive a one-time dose of prednisone to help with mild wheezing and with her cough. There is also concern expressed for diarrhea. The patient has had one episode here on the telemetry unit, but no further episodes. We are not able to obtain a stool culture. However, the diarrhea appears to have resolved at this time. The patient's weight has remained stable at 100 pounds. No other acute concerns. The patient appears stable and ready for discharge back to [facility]. This was discussed with Dr. Worley who is in agreement. Recommendations were given to change the patient from IV ceftriaxone to p.o. cefuroxime for further treatment of her UTI until urine cultures return. CONCERNS AT DISCHARGE: Ms. Mccollum will be discharged to [facility] on 09/02/16. DIET: Regular diet. ACTIVITY: As tolerated. CONDITION: Improved, stable. DISPOSITION: To [facility]. TIME SPENT: Time spent on this discharge was approximately 45 minutes. Again, this is only a brief summary of the patient's hospital course of stay. For full details, please refer to the full medical record. If you have any further questions or need further assistance, please feel free to contact me at [phone]. DYANA SALVADOR NP CC: Ruben Chan MD* [id number]/[facility] #: [id number] MTDD
== END 2016-09-02 11:48 | DRG 690 ==
LOC: MEDTELE 13:41
PROVIDERS: ADMIT Hospitalist; ATTEND Internal Medicine
DX: N39.0 Urinary tract infection, site not specified (principal); I27.2 Other secondary pulmonary hypertension; B96.4 Proteus (mirabilis) (morganii) as the cause of diseases classified elsewhere; J98.11 Atelectasis; I35.0 Nonrheumatic aortic (valve) stenosis; R00.0 Tachycardia, unspecified; J40 Bronchitis, not specified as acute or chronic; E86.0 Dehydration; I36.1 Nonrheumatic tricuspid (valve) insufficiency; K44.9 Diaphragmatic hernia without obstruction or gangrene; K21.9 Gastro-esophageal reflux disease without esophagitis; Z79.1 Long term (current) use of non-steroidal anti-inflammatories (NSAID); Z79.899 Other long term (current) drug therapy; Z88.6 Allergy status to analgesic agent; Z88.8 Allergy status to other drugs, medicaments and biological substances; Z91.048 Other nonmedicinal substance allergy status; Z82.49 Family history of ischemic heart disease and other diseases of the circulatory system; Z80.0 Family history of malignant neoplasm of digestive organs; S72.001D Fracture of unspecified part of neck of right femur, subsequent encounter for closed fracture with routine healing; W19.XXXD Unspecified fall, subsequent encounter; Z66 Do not resuscitate
CPT/HCPCS: 36415; 80048; 81003; 81015; 83735; 85025; 87070; 87077; 87086; 87186; 87205; 94640; 94760; A9270-GY; J0696; J1644; J1940; J7512